=== PATIENT | female | born 1975 | race Two or more races ===

== ENCOUNTER 2021-07-26 07:40 | Outpatient (REF) | payer OTHER, SELFPAY ==
--- NOTE | ~2021-07-26 | XR_ITS ---
EXAMINATION: XR KNEES AP STANDING, BILATERAL XR KNEE, 2 VIEWS, LEFT CLINICAL INFORMATION: Bilateral knee pain. COMPARISON: None. TECHNIQUE: Standing AP view of both knees and lateral and sunrise views of the left knee. FINDINGS: RIGHT KNEE: Mild medial compartment joint space narrowing. No marginal osteophytes. No osseous erosion. No abnormal soft tissue calcification. No fracture or dislocation. LEFT KNEE: Mild medial compartment joint space narrowing. No significant marginal osteophytes. No osseous erosion. No fracture or dislocation. No abnormal soft tissue calcification. No significant joint effusion. XR/XR knee standing BI IMPRESSION: RIGHT KNEE: Minimal medial compartment arthrosis. LEFT KNEE: Minimal medial compartment arthrosis.
--- NOTE | ~2021-07-26 | XR_ITS ---
EXAMINATION: XR KNEES AP STANDING, BILATERAL XR KNEE, 2 VIEWS, LEFT CLINICAL INFORMATION: Bilateral knee pain. COMPARISON: None. TECHNIQUE: Standing AP view of both knees and lateral and sunrise views of the left knee. FINDINGS: RIGHT KNEE: Mild medial compartment joint space narrowing. No marginal osteophytes. No osseous erosion. No abnormal soft tissue calcification. No fracture or dislocation. LEFT KNEE: Mild medial compartment joint space narrowing. No significant marginal osteophytes. No osseous erosion. No fracture or dislocation. No abnormal soft tissue calcification. No significant joint effusion. XR/XR knee LT 2V IMPRESSION: RIGHT KNEE: Minimal medial compartment arthrosis. LEFT KNEE: Minimal medial compartment arthrosis.
== END 2021-07-26 07:41 | disposition home or self-care (01) ==
LOC: HO.HOSX 07:40
PROVIDERS: Visit Provider Physician Assistant
DX: M17.12 Unilateral primary osteoarthritis, left knee (principal); M25.561 Pain in right knee; M23.90 Unspecified internal derangement of unspecified knee
CPT/HCPCS: 73560; 73565; 99202

== ENCOUNTER → 2022-11-07 14:58 | Outpatient (BNVA) | payer OTHER, SELFPAY | PROVIDERS: Visit Provider Physician Assistant | DX: M77.12 Lateral epicondylitis, left elbow (principal) | CPT/HCPCS: 20551; 99212; J1100 ==

== ENCOUNTER 2022-11-19 09:18 | Outpatient (REF) | payer OTHER, SELFPAY | END 2022-11-19 09:19 | disposition home or self-care (01) | LOC: HO.NEURO 09:18 | PROVIDERS: Visit Provider Physician Assistant | DX: R20.0 Anesthesia of skin (principal); R20.2 Paresthesia of skin | CPT/HCPCS: 95885; 95910 ==

== ENCOUNTER 2022-11-25 13:23 | Outpatient (AMB) | payer OTHER, SELFPAY ==
[2022-11-25 13:36] VITALS: BMI 26.5
--- NOTE | 2022-11-25 13:36 | MHC.OFFVIS ---
Intake Vital Signs 11/25/22 13:36 Height 5 ft 6 in Weight 164 lb BMI 26.5 Intake Visit Reasons: OV-Anesthesia & Paresthesia of skin-EMG review Intake Note: Stephani 46 yr old female presents today S/P left elbow injection from 11/07/22 with William Meadows. States injection did not help at all and might have made her pain worse. Patient is now experiencing jittering in her fingers. Patient returns today for her EMG review. Allergies adhesive tape Allergy (Mild, Verified 11/25/22 13:39) Itching HPI OV-Anesthesia & Paresthesia of skin-EMG review HPI Details Stephani is a 46 year old left hand dominant woman woman who presents for a NCS review of her left hand numbness. She was last seen by JUAN Mae for left medial epicondylitis and received an injection on 11/07/22. She feels this injection did not help her, and may have made her pain worse. She complains now of a jittering feeling in her fingers Her primary complaint today is of pain in her forearm, with some mild weakness in her arm. She says her pain is bad enough that she has difficulty sleeping at night. She also has some stiffness in her left hand, worse after some prolonged activity. 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 Review of Systems Const All systems reviewed & are unremarkable except as noted in HPI and below Physical Exam Vital Signs: BMI result Body Mass Index 26.5 Const General: cooperative, healthy appearing and no acute distress Orientation/consciousness: patient oriented x3 HEENT Head: Yes normocephalic and Yes atraumatic Eyes EOM: EOMs intact bilaterally Resp Effort & Inspection: normal respiratory effort and able to speak in complete sentences Cardio Jugular venous distension: no JVD Skin General skin exam: turgor normal Rashes: no rashes Neuro General: patient oriented x3 Extrem Other: Evaluation of Left Upper Extremity: The patient is alert, oriented, and in no acute distress Neuro: Median, Ulnar, Radial nerves motor and sensory intact and sensation is normal to the tips of all digits No thenar or intrinsic wasting Good APB muscle belly firing and good finger cross Vascular: Cap refill brisk ROM: She can make a tight fist with good strength and no pain, and extend all her digits Smooth and symmetrical wrist ROM, including pronosupination Mild tenderness over the flexor origin just over the medial epicondyle Negative Tinel's sign over the ulnar nerve at the cubital tunnel Skin: No lacerations or abrasions. General: No Ecchymosis. No Erythema or evidence of infection. Nerve Conduction study: Normal study with no evidence of carpal tunnel or cubital tunnel syndrome Dr. Todd 11/19/22 Psych Appearance: grossly normal Affect: normal affect Attitude: cooperative Assessment & Plan Assessment & Plan (1) Medial epicondylitis of left elbow: Code(s): M77.02 - Medial epicondylitis, left elbow Plan Assessment & Plan: 1. Left hand numbness and weakness Intermittent and occasional No clinical evidence of carpal tunnel or cubital tunnel syndrome. EMG nerve conduction study within normal limits. 2. Left medial epicondylitis S/P injection on 11/07/22 by JUAN Mae I educated her about this condition I discussed treatment options I recommend OT hand therapy and activity modification Does sound like doing curl type exercises at the gym is likely not helpful. I ordered OT hand therapy, referring her to a location in [facility] as this is closer to her residence She should limit or avoid any activities which cause her pain I explained it can take a long while for her pain to improve from medial epicondylitis She can follow up with Tu in 6-8 weeks. Hopefully OT and activity modification will bring her some relief. Scribed for Pratima Gamino MD by Iam Beavers, medical screener, on 11/25/22 at 2:05 PM, EST. Orders: Orders OT Evaluation and Treatment Today M77.02 - Medial epicondylitis, left elbow Coding Level of Care Code Est Pt Level 3 (95430) Diagnoses Medial epicondylitis of left elbow M77.02
== END 2022-11-25 14:24 | disposition home or self-care (01) ==
PROVIDERS: Visit Provider Orthopaedic Surgery
DX: M77.02 Medial epicondylitis, left elbow (principal)
CPT/HCPCS: 99213

== ENCOUNTER → 2022-11-25 13:23 | Outpatient (BNVA) | payer OTHER, SELFPAY | PROVIDERS: Visit Provider Orthopaedic Surgery | DX: M77.02 Medial epicondylitis, left elbow (principal) | CPT/HCPCS: 99212 ==

== ENCOUNTER 2023-01-12 09:07 | Outpatient (REF) | payer OTHER, SELFPAY ==
--- NOTE | ~2023-01-12 | XR_ITS ---
EXAMINATION: XR ELBOW, LEFT CLINICAL INFORMATION: Pain in left elbow COMPARISON: None available. TECHNIQUE: AP, lateral, and oblique views of the left elbow. FINDINGS: Alignment preserved. Bone mineralization is normal. Multiple small irregular calcifications in the soft tissues adjacent to the medial epicondyle suggestive of medial epicondylitis. XR/XR elbow LT min 3V IMPRESSION: Multiple small irregular calcifications in the soft tissues adjacent to the medial epicondyle suggestive of medial epicondylitis. Recommend follow-up imaging in 10-14 days if fracture is suspected.
== END 2023-01-12 09:08 | disposition home or self-care (01) ==
LOC: HO.HOSX 09:07
PROVIDERS: Visit Provider Physician Assistant
DX: M25.522 Pain in left elbow (principal)
CPT/HCPCS: 73080; 99212

== ENCOUNTER 2023-01-12 09:07 | Outpatient (AMB) | payer OTHER, SELFPAY ==
--- NOTE | 2023-01-12 09:11 | MHC.OFFVIS ---
Intake Vital Signs 01/12/23 09:22 Height 5 ft 6 in Weight 164 lb BMI 26.5 Intake Visit Reasons: OV-Anesthesia & Paresthesia of skin-F/U Intake Note: Stephani 46 year old left hand dominant female who presents today for a follow up of left elbow s/p OT. Patient reports OT is not helping, continues to have pain daily. She states at OT heat does not help and icing helps until the ice comes off. States xrays done at [place] which showed calcium deposit. Allergies adhesive tape Allergy (Mild, Verified 01/12/23 09:22) Itching HPI OV-Anesthesia & Paresthesia of skin-F/U HPI Details 47-year-old left hand dominant female who returns to the office today for a follow-up of left elbow pain. She was seen by Dr. Gamino in November who prescribed her occupational therapy which did not provide her any relief. She was also seen by her PCP at [place] where x-rays were performed. She continues to have pain and mild numbness and tingling in her left elbow which is aggravated hyperextension, heat treatment and at night. She finds transient relief with icing. She had an injection in the past which provided her relief for about a week. She finds no relief with bracing. 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 No erythema or swelling. ROM full without pain. Tenderness over the medial epicondyle and pain with resisted wrist flexion and extension. NVI. Assessment & Plan Assessment & Plan (1) Medial epicondylitis of left elbow: Code(s): M77.02 - Medial epicondylitis, left elbow Plan Dr. Ro was available to see the patient with me today. We discussed treatment options again which include modification of activities, physical therapy and steroid injections. Given the amount of discomfort she is experiencing along with her nerve symptoms, it did raise the question of surgical intervention which would consist of a debridement along the epicondyle and opening the area along the nerve. I will reach out to Dr. Gamino once again to discuss this further to see if this is a patient who would benefit from this type of procedure. Once this has been discussed we will reach out to the patient for further scheduling. Orders: Orders XR elbow LT min 3V Today M25.522 - Pain in left elbow Patient Instructions: Scribed for Tu Meadows PA-C, by Benitez Borja medical professionals, on 01/12/2023 at 9:00 AM EST. May, Tu Meadows PA-C, have personally reviewed and agree with the information entered by the scribe. Coding Level of Care Code Est Pt Level 3 (96127) Diagnoses Medial epicondylitis of left elbow M77.02
[2023-01-12 09:22] VITALS: BMI 26.5
== END 2023-01-12 10:23 | disposition home or self-care (01) ==
PROVIDERS: Visit Provider Physician Assistant
DX: M77.02 Medial epicondylitis, left elbow (principal)
CPT/HCPCS: 99213

== ENCOUNTER 2023-03-03 09:57 | Outpatient (AMB) | payer OTHER, SELFPAY ==
--- NOTE | 2023-03-03 10:30 | A.OFFVIS_ITS ---
Intake Vital Signs 03/03/23 10:31 Height 5 ft 6 in Weight 175 lb BMI 28.2 Intake Visit Reasons: Newprob-LT elbow-discuss surgery Intake Note: Stephani 47 year old female who is left hand dominant, presents today for her left elbow medial epicondylitis as per William Lopez who saw patient on 01/12/23. Patient here to discuss this further treatment options vs surgical intervention. Allergies adhesive tape Allergy (Mild, Verified 01/12/23 09:22) Itching HPI Newprob-LT elbow-discuss surgery HPI Details Stephani is a 47 year old left hand dominant [facility]. She was last seen by JUAN Lopez on 01/12/23, and received an injection on 11/07/22. This was her third injection since 06/2021 for pain, as her symptoms have been present for ~2 years now and originally treated by her explosive ordnance specialist.. She says her most recent injection was helpful for ~1 week, and both bracing & PT were not helpful. She says following her most recent injection her pain worsened. She said she did her physical therapy exercises for perhaps 4 weeks before discontinuing because she did not think they were helpful. She continues to have pain and mild numbness and tingling in her left elbow which is aggravated hyperextension, heat treatment and at night. She says her pain is bad enough that she has difficulty sleeping at night as her arm wakes her up. 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 Physical Exam Vital Signs: BMI result Body Mass Index 28.2 Extrem Other: Evaluation of Left Upper Extremity: The patient is alert, oriented, and in no acute distress Neuro: Median, Ulnar, Radial nerves motor and sensory intact and sensation is normal to the tips of all digits No thenar or intrinsic wasting Good APB muscle belly firing and good finger cross Vascular: Cap refill brisk ROM: She can make a tight fist with good strength and no pain, and extend all her digits Smooth and symmetrical wrist ROM, including pronosupination Tender over the flexor origin just over the medial epicondyle Pain with resisted forearm pronation No pain with resisted finger flexion Radiographs: 3 views of the left elbow from 01/12/23 were reviewed by me today in clinic. They show no fractures or dislocations. There are some calcifications seen along the medial epicondyle Nerve Conduction study: Normal study with no evidence of carpal tunnel or cubital tunnel syndrome Dr. Todd 11/19/22 Assessment & Plan Assessment & Plan (1) Medial epicondylitis of left elbow: Code(s): M77.02 - Medial epicondylitis, left elbow Plan Assessment & Plan: 1. Left medial epicondylitis S/P injection on 11/07/22 by JUAN Lopez Patient reports previous injections in 06/2022 & 2021 by her Shift Superintendent Caustic Cresylate I educated her about this condition I discussed operative and non-operative treatment options I discussed the fact that between 88 96% of patients who are treated with conservative measures such as OT hand therapy, stretching, bracing and steroid injections improve, though it may take 6-12 months or more for improvement. She has had only temporary relief from injections, and no improvement with bracing a 4 week trial of physical therapy exercises. She reports feeling worse pain since her last injection I recommend OT and activity modification I ordered a repeat course of OT hand therapy to work on stretching and modalities, and discussed the importance of performing her stretching exercises daily. As she lives in [place] she is only available to attend OT at [address] weekly, and she says closer locations to her residence do not have OT, only PT I explained it can take a long while for her pain to improve from medial epicondylitis She will follow up in 2 months to see if her symptoms have improved If they have not we may reconsider possible operative intervention at her next appointment This should be a 30 minute appointment with me 2. Left hand numbness and weakness Intermittent and occasional with activity No clinical evidence of carpal tunnel or cubital tunnel syndrome. EMG nerve conduction study within normal limits. Please note that greater than 30 minutes was spent with this patient going over the history, evaluating the patient and radiographs, formulating possible treatment options, discussing them with the patient, and documenting the visit. Scribed for Pratima Gamino MD by Iam Beavers, medical transcription, on 03/03/23 at 10:55 AM, EST. Orders: Orders OT Evaluation and Treatment Today M77.02 - Medial epicondylitis, left elbow Coding Level of Care Code Est Pt Level 4 (48252) Diagnoses Medial epicondylitis of left elbow M77.02
[2023-03-03 10:31] VITALS: BMI 28.2
== END 2023-03-03 11:08 | disposition home or self-care (01) ==
LOC: HO.HOS 09:57
PROVIDERS: Visit Provider Orthopaedic Surgery
DX: M77.02 Medial epicondylitis, left elbow (principal)
CPT/HCPCS: 99214

== ENCOUNTER → 2023-03-03 09:57 | Outpatient (BNVA) | payer OTHER, SELFPAY | PROVIDERS: Visit Provider Orthopaedic Surgery | DX: M77.02 Medial epicondylitis, left elbow (principal) | CPT/HCPCS: 99212 ==

== ENCOUNTER 2023-03-26 12:55 | Outpatient (RCR) | payer OTHER, SELFPAY ==
--- NOTE | 2023-04-15 08:55 | MHC.OT.DC ---
[address] [phone] F: [phone] Occupational Therapy Discharge Note Patient Name: Stephani Goins Provider: Dr Pratima Gamino Diagnosis: Medial Epicondylitis L elbow Date of Evaluation: 03/26/23 Date of Discharge: 04/15/23 Treatments to Date: 1 Cancellations to Date: 0 No Shows to Date: 4 Discharge Status: Visit Non-compliance Discharge Summary: Stephani was initially seen for an evaluation on 03/26/23 for medial epicondylitis on L elbow. At that time was educated on basic joint protection, stretches and disease etiology. She has since missed 4 scheduled appointments and she is now being discharged for visit non compliance. Electronically Signed By: Dominique Maya OT/s Reviewed/agree with student documentation: Yes Therapist: Jojo Figueroa OTR/L Please Sign and return to therapist, thank you for your referral.
== END 2023-04-15 08:57 | disposition home or self-care (01) ==
LOC: HO.OT 12:55
PROVIDERS: PCP Family Medicine; Visit Provider Orthopaedic Surgery
DX: M77.02 Medial epicondylitis, left elbow (principal)
CPT/HCPCS: 97035; 97110; 97140; 97165

== ENCOUNTER 2023-11-11 08:20 | Outpatient (AMB) | payer OTHER, SELFPAY ==
--- NOTE | 2023-11-11 08:23 | A.OFFVIS_ITS ---
Vital Signs 11/11/23 08:26 Height 5 ft 6 in Weight 185 lb 3.013 oz BMI 29.9 BP 124/87 Blood Pressure Location Lt brachial Position Sitting Pulse 84 Intake Visit Reasons: GERD and colonoscopy screening Intake Note: Stephani presents in the office as a new patient for GERD and a Colonoscopy screening. CC: She feels like her acis reflux has gotten worse. Pepcid seems to help - she states she gets the acid that comes up and goes back down almost like vomit. Dog Licenser Required: No Allergies adhesive tape Allergy (Mild, Verified 11/11/23 08:26) Itching HPI HPI GERD and colonoscopy screening: Details: 47-YEAR-OLD FEMALE here for a preprocedural meeting to discuss a screening colonoscopy and also wants to be evaluated for GERD. She is referred by [facility]. P.m. X Asthma Thyroid goiter /subclinical hyperthyroidism Generalized osteoarthritis Anxiety Migraines Nephrolithiasis Genital herpes GERD * SURGICAL HISTORY section x3 Uterine polyp removal * ALLERGIES Adhesive tape * [employer]: none in our system TODAY'S VISIT Her GERD has worsened recently. She had a barium swallow a couple of years ago that showed really bad GERD with liquids refluxing back up. She will frequently eat and have vomit come back up. 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 She feels always full, and the famotidine helps settle my stomach. She has frequent diarrhea, and she uses a lot of Imodium - but this will back her up for 3 days and then she has a lot of bloating and then will have an explosive diarrhea response. Her mother and grandmother both have dairy problems and frequent diarrhea as well. Her sister has really bad GERD as well. She is likely lactose intolerant and avoids this on trips and uses almond milk. Her asthma is well controlled and she denies cardiac problems. There are no prior problems with anesthesia or sedation. There are no infectious disease problems. We will try her on some sucralfate and return office visit in 6 weeks. 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 Review of Systems Const Denies fatigue, Denies fever(s), Denies night sweats, Denies poor appetite and Denies weight loss ENT Reports Normal hearing present, Denies dental pain, Denies dysphagia, Denies hearing loss, Denies mouth pain, Denies odynophagia, Denies throat swelling, Denies tongue swelling and Reports other (Dentition adequate) Card Reports no additional complaints Resp Reports no additional complaints GI Details: Reports abdominal pain, Denies melena, Reports bloating, Denies hematochezia, Denies constipation, Denies GI cramping, Denies dysphagia, Denies excessive flatus, Denies early satiety, Reports heartburn, Reports diarrhea, Reports nausea, Denies odynophagia, Denies vomiting and Denies hematemesis Skin/Breast Denies pruritus, Denies lesions, Denies rash and Denies jaundice Neuro Reports Normal hearing present and Denies Abnormal speech present Endo Denies fatigue Aller/Immun Denies throat swelling and Denies tongue swelling Physical Exam Vital Signs: Last Vital Signs Pulse 84 11/11/23 08:26 BP 124/87 11/11/23 08:26 BMI result Body Mass Index 29.9 Const General: cooperative, no acute distress, well developed and well groomed Nutritional Appearance: well nourished and overweight Orientation/consciousness: oriented to person, oriented to place and oriented to time Limitations: No language barrier HEENT Head: Yes normocephalic and Yes atraumatic Eyes General: appearance normal, both eyes and all related structures Pupils: Equal, round and reactive pupils present Neck Neck: Yes normal visual inspection and Yes no lymphadenopathy Thyroid: Thyroid normal Resp Effort & Inspection: normal respiratory effort and able to speak in complete sentences Auscultation: clear to auscultation bilaterally Cardio Rate: regular rate Rhythm: regular rhythm Heart sounds: Normal, physiologic split S2 sound present Peripheral pulses: radial pulses present and posterior tibial pulses present GI Inspection: No distended, No Abdominal panniculus present and Yes obesity Palpation (GI): Soft to palpation, nontender, no guarding, not rigid and No hepatosplenomegaly present Percussion: Yes normal to percussion Auscultation: normal bowel sounds Rectal Exam - Female: deferred Skin General skin exam: no rashes or lesions noted, turgor normal, skin not dry, no jaundice, No spider nevi and no striae Rashes: no rashes Nails: normal Neuro General: oriented to person, oriented to place and oriented to time Cranial nerves: Yes Equal, round and reactive pupils present and Yes Normal hearing present Speech: No Abnormal speech present Extrem General: Yes normal to inspection, No clubbing, No cyanosis and No edema Psych Appearance: grossly normal and well kempt Mental Status: mental status grossly normal Speech and movement: Normal speech and movement present Affect: normal affect Attitude: cooperative Thought process: Normal thought process present and not confabulating Thought content: Normal thought content present Insight: Limited insight present (Psych) Judgement: Limited judgement present (Psych) Assessment & Plan Assessment & Plan (1) Pre-op examination: Code(s): Z01.818 - Encounter for other preprocedural examination Category: Medical (2) GERD (gastroesophageal reflux disease): Code(s): K21.9 - Gastro-esophageal reflux disease without esophagitis Category: Medical (3) Diarrhea: Code(s): R19.7 - Diarrhea, unspecified Category: Medical (4) Early satiety: Code(s): R68.81 - Early satiety Category: Medical Plan Ask her about family history of colon cancer and polyps next visit Her GERD has worsened recently. She had a barium swallow a couple of years ago that showed really bad GERD with liquids refluxing back up. She will frequently eat and have vomit come back up. 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 She feels always full, and the famotidine helps settle my stomach. She has frequent diarrhea, and she uses a lot of Imodium - but this will back her up for 3 days and then she has a lot of bloating and then will have an explosive diarrhea response. Her mother and grandmother both have dairy problems and frequent diarrhea as well. Her sister has really bad GERD as well. She is likely lactose intolerant and avoids this on trips and uses almond milk. Her asthma is well controlled and she denies cardiac problems. There are no prior problems with anesthesia or sedation. There are no infectious disease problems. We will try her on some sucralfate and return office visit in 6 weeks. Orders: Orders EGD/[place] Combo - GI Use Only 11/11/23 Z01.818 - Encounter for other preprocedural examination Rast Allergen 11/11/23 R19.7 - Diarrhea, unspecified, R68.81 - Early satiety Transglutaminase Ab IgG 11/11/23 R19.7 - Diarrhea, unspecified, R68.81 - Early satiety Comprehensive Met. Panel 11/11/23 Z01.818 - Encounter for other preprocedural examination Complete Blood Count Auto Diff 11/11/23 Z.818 - Encounter for other preprocedural examination Transglutaminase IgA 11/11/23 R19.7 - Diarrhea, unspecified, R68.81 - Early satiety Medications: New sodium,potassium,mag sulfates 17.5-3.13-1.6 gram (Suprep Bowel Prep Kit) 480 mL orally; FOR COLONOSCOPY PREP 354 mL 0RF sucralfate (Carafate) 2 grams (2 x 1 gram) PO .qacsupper 60 tabs 3RF R19.7 - Diarrhea, unspecified, K21.9 - Gastro-esophageal reflux disease without esophagitis Coding Level of Care Code New Pt Level 3 (67761) Diagnoses Pre-op examination Z.818 GERD (gastroesophageal reflux disease) K21.9 Diarrhea R19.7 Early satiety R68.81
[2023-11-11 08:26] VITALS: BP 124/87; PULSE 84; BMI 29.9
== END 2023-11-11 09:15 | disposition home or self-care (01) ==
LOC: HO.HGI 08:20
PROVIDERS: PCP Family Medicine; Visit Provider Nurse Practitioner
DX: Z01.818 Encounter for other preprocedural examination (principal); K21.9 Gastro-esophageal reflux disease without esophagitis; R19.7 Diarrhea, unspecified; R68.81 Early satiety
CPT/HCPCS: 99203

== ENCOUNTER 2023-11-11 08:20 | Outpatient (REF) | payer OTHER, SELFPAY ==
[2023-11-11 09:35] LABS: MANUAL DIFF FLAG NO
[2023-11-11 09:57] LABS: Basophils Absolute Auto 0.1 X10*3/uL (0.0-0.2); Basophils Percent Auto 0.6 % (0-2); Eosinophils Absolute Auto 0.1 X10*3/uL (0.0-0.4); Eosinophils Percent Auto 1.7 % (0-4); Hematocrit 42.7 % (37.0-47.0); Hemoglobin 14.4 g/dl (12.0-16.0); Imm Gran Abs Auto 0.01 X10*3/uL (0.00-0.03); Imm Gran Pct Auto 0.1 % (0.0-0.4); Lymphocytes Absolute Auto 2.9 X10*3/uL (1.2-4.9); Lymphocytes Percent Auto 38.1 % (20-40); Mean Corpuscular HGB Conc 33.7 g/dl (31.0-35.0); Mean Corpuscular Hemoglobin 29.5 pg (27.0-33.0); Mean Corpuscular Volume 87.5 fL (80.0-98.0); Mean Platelet Volume 9.3 fL (9.4-12.3); Monocytes Absolute Auto 0.6 X10*3/uL (0.1-1.2); Monocytes Percent Auto 8.2 % (2-11); Neutrophils Percent Auto 51.3 % (45-73); Platelet Count 353 X10*3/uL (160-400); Red Blood Count 4.88 X10*6/uL (4.20-5.50); Red Cell Distribution Width 11.9 % (11.0-16.0); White Blood Count 7.7 X10*3/uL (4.8-10.8)
[2023-11-11 10:19] LABS: Alanine Aminotransferase 16 U/L (0-31); Albumin Level 4.3 g/dL (3.5-5.0); Alkaline Phosphatase 110 U/L (39-117); Anion Gap 13 (12-20); Aspartate Amino Transferase 18 U/L (5-31); Bilirubin Total 0.5 mg/dL (0.0-1.0); Blood Urea Nitrogen 13 mg/dL (9-16); Calcium 10.2 mg/dL (8.4-10.2); Carbon Dioxide 27 mmol/L (22-29); Chloride 107 mmol/L (96-108); Estimated Glomerular Filt Rate 53; Glucose Random 90 mg/dL (60-115); Sodium 143 mmol/L (135-145); Total Protein 7.8 g/dL (6.5-8.0)
[2023-11-13 22:08] LABS: Transglutaminase Ab IgG <1.0 U/mL; Transglutaminase IgA <1.0 U/mL
== END 2023-11-11 08:21 | disposition home or self-care (01) ==
LOC: HO.LAB 08:20
PROVIDERS: PCP Family Medicine; Visit Provider Nurse Practitioner
DX: Z01.818 Encounter for other preprocedural examination (principal); R19.7 Diarrhea, unspecified; R68.81 Early satiety; K21.9 Gastro-esophageal reflux disease without esophagitis
CPT/HCPCS: 36415; 80053; 85025; 86003; 86364; 99202

== ENCOUNTER 2024-05-03 10:07 | Outpatient (AMB) | payer OTHER, SELFPAY ==
[2024-05-03 10:10] VITALS: BMI 29.9
--- NOTE | 2024-05-03 10:10 | A.OFFVIS_ITS ---
Vital Signs 05/03/24 10:10 Height 5 ft 6 in Weight 185 lb BMI 29.9 Intake Visit Reasons: OV- Medial epicondylitis of left elbow Intake Note: Stephani 47 year old female, left hand dominant, presents today for her left elbow medial epicondylitis follow up visit s/p O.T. States she continues to have pain and swelling. She was seen in urgent care on 04/15/24 due to feeling pressure in arm/elbow and was told she has calcium deposit. She is still limited ROM and has started O.T about 1 week ago. Allergies adhesive tape Allergy (Mild, Verified 05/03/24 10:22) Itching HPI HPI OV- Medial epicondylitis of left elbow: Details: Stephani is a 48 year old left hand dominant woman who returns to discuss her left medial epicondylitis. She was last seen on 03/03/23, and received an injection on by JUAN Mae on 11/07/22. This was her third injection since 06/2021 for pain, as her symptoms have been present for ~3 years now and originally treated by her recruit instructor. At her last appointment she was sent for OT hand therapy, she attended one appointment and no-showed the remaining ones and was D/C following their no-show policy. She continues to have pain and swelling in her left elbow, which has been present for several years now. She says she was seen in the ED on 04/15/24 due to elbow pain & pressure and told she had a calcium deposit there. She says her pain is bad enough that she has difficulty sleeping at night as her arm wakes her up. She says she started OT hand therapy again ~1 week ago, this is not through [place]. She continues to complain of occasional tingling in her fingers, intermittent and primarily when moving/holding her elbow in specific positions. She says this has gotten worse since she was seen in the ED on 04/15/24. 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 Review of Systems Const All systems reviewed & are unremarkable except as noted in HPI and below Physical Exam Vital Signs: BMI result Body Mass Index 29.9 Const General: no acute distress and alert Orientation/consciousness: patient oriented x3 Neuro General: patient oriented x3 Extrem Other: Evaluation of Left Upper Extremity: The patient is alert, oriented, and in no acute distress When asked her to show me where her pain is she placed her hand over the anterior aspect of her left shoulder, then demonstrated that she feels pressure over the antecubital area extending over the volar aspect of the forearm. Neuro: Median, Ulnar, Radial nerves motor and sensory intact and sensation is normal to the tips of all digits No thenar or intrinsic wasting Good APB muscle belly firing and good finger cross Vascular: Cap refill brisk ROM: She can make a tight fist with good strength and no pain, and extend all her digits Smooth and symmetrical wrist ROM, including pronosupination Nontender over the medial epicondyle the 1st time I palpated it. Mild tenderness over the medial epicondyle the 2nd time I palpated it No swelling, full elbow range of motion Pain with resisted forearm pronation No pain with resisted finger or wrist flexion Radiographs: 3 views of the left elbow from 01/12/23 were reviewed by me today in clinic. They show no fractures or dislocations. There are some calcifications seen along the medial epicondyle Nerve Conduction study: Normal study with no evidence of carpal tunnel or cubital tunnel syndrome Dr. Todd 11/19/22 Psych Appearance: grossly normal Affect: normal affect Attitude: cooperative Assessment & Plan Assessment & Plan (1) Left arm pain: Code(s): M79.602 - Pain in left arm Category: Medical (2) Medial epicondylitis of left elbow: Code(s): M77.02 - Medial epicondylitis, left elbow Category: Medical Plan Assessment & Plan: 1. Generalized left arm pain & pressure Since ~04/15/24, etiology unclear Pain in the left shoulder, as well as the antecubital fossa across the volar surface of the forearm 2. Left medial epicondylitis S/P injection on 11/07/22 by JUAN Mae Patient reports previous injections in 06/2022 & 2021 by her Chief Design Engineer No/inconsistent tenderness over the medial epicondyle today in clinic This appears to have mostly resolved and is no longer her primary complaint I educated her about this condition I recommend OT/PT and activity modification to work on stretching and modalities, and I discussed the importance of performing her stretching exercises daily. She says she recently resumed attending physical therapy last week. I explained it can take a long while for her pain to improve from medial epicondylitis She will follow up prn 3. History of Left hand numbness and weakness In all digits Intermittent and occasional with activity No clinical evidence of carpal tunnel or cubital tunnel syndrome. EMG nerve conduction study within normal limits. Scribed for Pratima Gamino MD by Iam Beavers, durable medical equipment repairer, on 05/03/24 at 10:35 AM, EST. Coding Level of Care Code Est Pt Level 3 (36162) Diagnoses Left arm pain M79.602 Medial epicondylitis of left elbow M77.02
== END 2024-05-03 10:44 | disposition home or self-care (01) ==
PROVIDERS: PCP Family Medicine; Visit Provider Orthopaedic Surgery
DX: M79.602 Pain in left arm (principal); M77.02 Medial epicondylitis, left elbow
CPT/HCPCS: 99213

== ENCOUNTER → 2024-05-03 10:07 | Outpatient (BNVA) | payer OTHER, SELFPAY | PROVIDERS: PCP Family Medicine; Visit Provider Orthopaedic Surgery | DX: M77.02 Medial epicondylitis, left elbow (principal); M79.602 Pain in left arm | CPT/HCPCS: 99212 ==

== ENCOUNTER 2024-07-12 13:13 | Outpatient (AMB) | payer OTHER, SELFPAY ==
--- NOTE | 2024-07-12 13:16 | MHC.OFFVIS ---
Vital Signs 07/12/24 13:17 Height 5 ft 6 in Weight 195 lb 5.273 oz BMI 31.5 BP 124/86 Blood Pressure Location Lt brachial Position Sitting Pulse 91 Pulse Source Pulse Oximeter Pulse Oximetry (%) 96 Oxygen Delivery Method Room Air Intake Visit Reasons: Hyperthyroidism Intake Note: Patient present today for Hyperthyroidism office visit. University Professor Required: No Allergies adhesive tape Allergy (Mild, Verified 07/12/24 13:26) Itching Medication List - Last Reconciled 07/12/24 by Rosalina Dupont MD cholecalciferol (vitamin D3) 50 mcg PO DAILY famotidine 20 mg PO BID ferrous sulfate 325 mg PO DAILY ibuprofen 600 mg PO Q8H PRN lorazepam (Ativan) 0.5 mg PO DAILY PRN methimazole 5 mg PO DAILY ondansetron mg PO riboflavin (vitamin B2) 400 mg PO DAILY sodium,potassium,mag sulfates 17.5-3.13-1.6 gram (Suprep Bowel Prep Kit) 480 mL orally; FOR COLONOSCOPY PREP sucralfate (Carafate) 2 grams (2 x 1 gram) PO .qacsupper HPI Comments Details: 48-year-old female coming in today for initial evaluation of hyperthyroidism and hyperparathyroidism. Patient was previously following with [facility] endocrinology, however due to insurance coverage changes has to change her endocrinology care. Last seen 1 year ago. Hyperthyroidism 2011 during hyperemesis, found to have thyroid dysfunction then resolved Then 2012 : palpitation , anxiety, got evaluated got diagnosed with hyperthyroidism Was started on methimazole and then lost to follow up Then reestablished care with PCP 1 year ago and restarted methimazole. currently on metimazole 5 mg daily. skipped it for a few weeks late 2023/early may 2024 but now back on it for the past 2 weeks. Palpitation improved. Anxiety still present. Still tired , not improved. Diarrhea she is on imodium. Experiencing hot flashes, last period was 1 year ago. Gained 10 lbs since summer 2024. Patient currently denies changes in appearance of eyes or vision changes, tremors, increased diaphoresis or dry skin. ? Some intermittent dysphagia. Patient denies any pain on swallowing or voice changes or difficulty breathing. Patient denies any history of childhood neck radiation. Denies having ever used lithium, amiodarone or biotin supplements. Patient denies any family history of thyroid cancer. 2 cousins , one had hemithyroidectomy unclear reason, the other one had Graves disease and had thyroidectomy, paternal cousins. Labs 06/16/2024 TSH 0.97 Hyperparathyroidism Patient tells me she was also diagnosed with primary hyperparathyroidism back when she was following with [facility] endocrinology about a year ago. I do not have records of this, however labs from October 2023 showed normal calcium levels. No kidney stones No fractures sister had kidney stones and hyper parathyroidism On vitamin D 1000 units daily No calcium supplemnets [place] milk here and there, yogurt once a week. Physical exam General: sitting comfortably in no acute distress HEENT: normocephalic/atraumatic, Neck: supple, symmetrical, no thyromegaly , Cardiac: normal heart sounds Pulm: normal breath sounds B/L, no added breath sounds Abd: not distended, no tenderness Extremities: no edema, no signs of myxedema Laboratory Tests 11/11/23 09:35 Calcium 10.2 Albumin 4.3 PFSH Medical History (Updated 07/12/24 @ 14:01 by Rosalina Dupont MD) Hyperthyroidism Hyperparathyroidism Surgical History Hx of myomectomy History of section Social History Patient Tobacco Use Status: Never used Tobacco Current occupational status: employed 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 Previously she was following with [facility] endocrinology, I will obtain her records. At this time she is on methimazole 5 mg daily, she had blood work on June 16 which showed normal TSH. She describes she was inconsistent with taking the methimazole over the past few weeks however for the past 2 weeks has been taking it consistently. I asked her to repeat labs in another 2 weeks. We will also check for antibodies to see if she has Graves disease. She does not know the etiology of hyperthyroidism. I discussed with the patient that most likely etiology is Graves disease. However given she does not have any concerns for orbitopathy, no goiter on neck exam, could possibly be toxic nodular disease or toxic adenoma. As far as Graves disease is concerned, Discussed with patient that about 30% of the patients have remission after 12-18 months of treatment with methimazole. More recent data has shown longer periods of treatment resulting in better remission rates as well. At this time we will plan to continue treatment with methimazole and continue adjusting the dose as needed. In the long run if she does not have remission, we also briefly discussed definitive therapy options of radioactive iodine ablation and total thyroidectomy and the need for requiring long-term levothyroxine therapy after those procedures. Plan: -obtain records from [facility] endocrinology -Continue taking methimazole 5 mg daily in the morning. - Hold multivitamin intake for three days before doing the specified blood tests. - Complete the thyroid and antibody blood work in two weeks. - Await scheduling call for thyroid ultrasound. - Follow up in four weeks to discuss test results and management plan. (2) Hyperparathyroidism: Code(s): E21.3 - Hyperparathyroidism, unspecified Category: Medical Plan: Patient describes she has a history of hyperparathyroidism, as mentioned in her PCP's note. I do not have any records of this, however labs from October 2023 showed normal calcium levels. I will obtain her records from [facility]. However at this time we will also order labs with 24 hour urine calcium evaluation as well as serum levels. Kidney function was normal from labs from October 2023. She does not have any history of kidney stones, fractures or osteoporosis. She does have a family history of kidney stones and hypercalcemia in sister, we will also have to think if she has possibly FH FH. We are getting a 24 hour urine evaluation, however we will have to keep in mind that she has low intake nutritionally of calcium. For hyperparathyroidism, I explained the need for detailed assessment through upcoming lab results and a 24-hour urine study. I encouraged the patient to increase her dietary calcium intake to incorporate 1000 mg of calcium daily in preparation for testing. We scheduled a follow-up to review all test outcomes and reassess treatment options as necessary. Plan: -ordered 24 hour urine calcium, creatinine, serum calcium, ionized calcium, albumin, PTH, vitamin-D, phosphorus levels , magnesium levels -continue vitamin-D 1000 units daily -incorporate calcium in diet to account for 1000 mg daily starting now so that her urine calcium levels are reflective of a good calcium intake -follow up in 4 weeks to discuss results -obtain records from [facility] endocrinology Plan I spent 60 minutes in reviewing the record, seeing the patient and documenting in the medical record. Orders: Orders Thyroid Stimulating Immunoglob 2 Weeks E05.90 - Thyrotoxicosis, unspecified without thyrotoxic crisis or storm Thyroid Peroxidase Antibodies 2 Weeks E05.90 - Thyrotoxicosis, unspecified without thyrotoxic crisis or storm Vitamin D 25-OH Total 2 Weeks E21.3 - Hyperparathyroidism, unspecified Calcium, Ionized 2 Weeks E21.3 - Hyperparathyroidism, unspecified Calcium, 24 Hr Ur 2 Weeks E21.3 - Hyperparathyroidism, unspecified Creatinine, 24 Hr Group 2 Weeks E21.3 - Hyperparathyroidism, unspecified Basic Metabolic Panel 2 Weeks E21.3 - Hyperparathyroidism, unspecified Magnesium 2 Weeks E21.3 - Hyperparathyroidism, unspecified Thyroid Stimulating Hormone 2 Weeks E05.90 - Thyrotoxicosis, unspecified without thyrotoxic crisis or storm Free T4 (Free Thyroxine) 2 Weeks E05.90 - Thyrotoxicosis, unspecified without thyrotoxic crisis or storm Triiodothyronine T3 Total 2 Weeks E05.90 - Thyrotoxicosis, unspecified without thyrotoxic crisis or storm Thyrotropin Receptor Antibody 2 Weeks E05.90 - Thyrotoxicosis, unspecified without thyrotoxic crisis or storm Albumin Level 2 Weeks E21.3 - Hyperparathyroidism, unspecified Calcium 2 Weeks E21.3 - Hyperparathyroidism, unspecified Phosphorus 2 Weeks E21.3 - Hyperparathyroidism, unspecified Parathyroid Hormone Intact 2 Weeks E21.3 - Hyperparathyroidism, unspecified US thyroid Today E05.90 - Thyrotoxicosis, unspecified without thyrotoxic crisis or storm Medications: New methimazole 5 mg PO DAILY 30 tabs 6RF Patient Instructions: Do 24 hr urine collection and do blood work same day as urine collection 24 hr urine collection instructions You have been asked to collect your urine for 24 hours to assess for calcium excretion. You must choose a 24 hour period of time when you will be home. The morning of the first day, DISCARD the FIRST morning void and then note the time. You will collect every single void from then on for 24 hours. For example, if you wake up at 6am and urinate, flush down that void. You will then collect every drop of urine all day and all night through 6am the following day. You will urinate one last time at 6am for the collection. The jug of urine must be kept in the refrigerator until you bring it to the lab. Continue vitamin D 1000 units daily Incorporate 800 to 1000 mcg of calcium in diet by taking 2-3 servings of calcium rich foods dailu Continue methimzole 5 mg daily Follow up in 4 weeks to discuss results Do thyroid ultrasound someone will call to schedule this Coding Level of Care Code New Pt Level 5 (80652) Diagnoses Hyperthyroidism E05.90 Hyperparathyroidism E21.3 Time Spent (min) 60
[2024-07-12 13:17] VITALS: BP 124/86; PULSE 91; O2SAT 96; BMI 31.5
--- OUTSIDE RECORDS SUMMARY | 2024-07-12 16:10 | XMS_ITS | Continuity of Care Document ---
Author Organization [facility] - [facility], [facility] Address [address] [place] [address] Care Team Providers Care Stave And Bolt Equalizer Name Role Phone ZENA VALENTINO Primary Care Provider Assessment Encounter Date Assessment Date Assessment LastModified by Organization Details LastModified Time 06/30/2024 06/30/2024 48yo female with right TMJ and history of GERD presents for reevaluation of throat clicking sensation. This started 6+ years ago and has been worked up in the past with FOL x3, CT neck 2019, and swallow study in 2019. She reports the sensation is now associated with right sided neck pain. No associated breathing, swallowing, or eating difficulties. Examination is unremarkable except for some clicking when the hyoid slides over the greater cornu of the thyroid cartilage, as appreciated by Dr. Clayton in the past. Patient declined fiberoptic laryngoscopy today. We discussed this is likely a benign age-related phenomenon as her larynx matures. There is no indication to order repeat imaging at this time. Offered to refer her to [facility] for an additional opinion if she would like to travel. [email or web address] Not available 06/30/2024 13:07:19 Plan of Treatment Reminders Order Date Submit Date Provider Last Modified By Organization Details Last Modified Time Details Appointments None record ed. Lab None record ed. Referral None record ed. Procedures None record ed. Surgeries None record ed. Imaging None record ed. Medication Orders None record ed. Patient TargetsNo targets recorded. Patient InstructionsNo instructions recorded. Reason for Referral None Reported. Problems Name Problem SNOMED Code Status Onset Date Resolution Date Notes Provider Name and Address Organization Details Recorded Time Mass of neck 766465534 Active 2018 Localized swelling, mass and lump, neck; Location: right Not e: Date Diagnosed : 12/28/2018 3:00 PM (R22.1) Not Available [facility] 4 02:21:22 Neck swelling 770719698 Active 2018 Localized swelling, mass and lump, neck; Location: right Not e: Date Diagnosed : 12/28/2018 3:00 PM (R22.1) Not Available [facility] 4 02:21:22 Respirato ry finding 463416458 Active 2019 Feeling of foreign body in throat; Note: Date Diagnosed : 09/22/2019 4:32 PM (R09.89) Not Available [facility] 4 02:21:59 Cardiovas cular finding 885584461 Active 2019 Feeling of foreign body in throat; Note: Date Diagnosed : 09/22/2019 4:32 PM (R09.89) Not Available [facility] 4 02:21:59 Laryngeal spasm 576687480 Active 2019 Laryngeal spasm; Note: Date Diagnosed : 02/24/2020 3:00 PM (J38.5) Not Available [facility] 4 02:21:41 Pain of right temporoma ndibular joint 88492081029 039011 Active 2022 Arthralgi a of right temporoma ndibular joint; Note: Date Diagnosed : 04/21/2023 4:10 PM (M26.621) Not Available [facility] 4 02:21:52 Somatofor m disorder 96076524 Active 2018 Psychogen ic dysphagia , including 'globus hystericu s'; Note: Date Diagnosed : 12/28/2018 2:44 PM (F45.8) Not Available [facility] 4 02:21:24 Feeling of lump in throat 274946420 Active 2024 NATALIYA ZAMORA PA-C [address] [place] [address], [place], [address] , [facility] - [facility] 5 13:07:28 Impacted cerumen in right ear 88136518162 56172 Active 2024 NATALIYA ZAMORA PA-C [address] [facility],[place] [address], [place], [address] , [facility] 13:08:59 Problem Notes None recorded. Procedures Surgical History Date Name Laterality Status Provider Name and Address Organization Details Recorded Time Cerumen removal without microscope right completed NATALIYA ZAMORA PA-C [address] [facility],[place] [address], [place], [address], [facility] 06/30/2024 12:58:58 Imaging Results None recorded. Procedure Notes None recorded. Medical Equipment None Reported. Medications Name Sig Start Date Stop Date Status Note LastModified by Organization Details LastModified Time sucralfat e 1 gram tablet TAKE 2 TABLETS ORALLY BEFORE SUPPER active Not Available Not Available No t Available sumatript an 25 mg tablet PLEASE SEE ATTACHED FOR DETAILED DIRECTIO NS active Not Available Not Available No t Available metronida zole 0.75 % (37.5 mg/5 gram) vaginal gel APPLY 1 APPLICAT ORFUL AT BEDTIME VAGINALL Y NIGHTLY 7 DAY(S) (DISCARD REMAINDE R) active Not Available Not Available No t Available ondansetr on HCl 4 mg tablet active Medicati on ID: [id number] B rand Name: ondanset alpesh HCl Send Method: E-Prescr ibed Sub s Allowed: subs OK Medic ationGen ericName : ondanset alpesh HCl Not Available Not Available Not Available famotidin e 40 mg tablet active Medicati on ID: [id number] B rand Name: famotidi ne Send Method: E-Prescr ibed Sub s Allowed: subs OK Medic ationGen ericName : famotidi ne Not Available Not Available Not Available sertralin e 100 mg tablet TAKE 1 TABLET BY MOUTH EVERY DAY IN THE MORNING active Not Available Not Available No t Available metronida zole 500 mg tablet TAKE 1 TABLET BY MOUTH TWICE A DAY FOR 7 DAYS active Not Available Not Available No t Available ondansetr on 8 mg disintegr ating tablet DISSOLVE 1 TABLET ON THE TONGUE BY MOUTH EVERY DAY NEEDED active Not Available Not Available No t Available terbinafi ne HCl 250 mg tablet TAKE 1 TABLET BY MOUTH EVERY DAY active Not Available Not Available No t Available famotidin e 20 mg tablet TAKE 1 TABLET BY MOUTH EVERY DAY active Not Available Not Available No t Available lorazepam 0.5 mg tablet TAKE 1 TABLET BY MOUTH EVERY DAY NEEDED FOR ANXIETY active Not Available Not Available No t Available cyanocoba juan (vit B-12) 500 mcg tablet TAKE 1 TABLET BY MOUTH EVERY DAY FOR 90 DAYS active Not Available Not Available No t Available cephalexi n 500 mg capsule TAKE 1 CAPSULE BY MOUTH EVERY 8 HOURS FOR 7 DAYS active Not Available Not Available No t Available erythromy geoffrey 5 mg/gram (0.5 %) eye ointment APPLY AT BEDTIME INTO BOTH EYES DIRECTED . active Not Available Not Available No t Available ferrous sulfate 325 mg (65 mg iron) tablet TAKE 1 TABLET BY MOUTH ONCE DAILY FOR 30 DAY(S) 90 DAYS 90 DAYS active Not Available Not Available No t Available clotrimaz ole-betam ethasone 1 %-0.05 % topical cream APPLY DAILY TO SKIN TO AFFECTED AREA TWICE A DAY FOR 2 WEEKS active Not Available Not Available No t Available ibuprofen 200 mg tablet 09/10 completed Medicati on ID: [id number] B rand Name: ibuprofe n Send Method: E-Prescr ibed Sub s Allowed: subs OK Medic ationGen ericName : ibuprofe n Not Available Not Available Not Available methimazo le 5 mg tablet TAKE 1 TABLET BY MOUTH EVERY DAY active Not Available Not Available No t Available sertralin e 25 mg tablet TAKE 1 TABLET BY MOUTH EVERY DAY IN THE MORNING active Not Available Not Available No t Available omeprazol e 20 mg capsule,d elayed release 09/10 completed Medicati on ID: [id number] D uration Value: 30 Brand Name: omeprazo le Send Method: E-Prescr ibed Sub s Allowed: subs OK Medic ationGen ericName : omeprazo le Not Available Not Available Not Available ibuprofen 600 mg tablet TAKE 1 TABLET BY MOUTH THREE TIMES A DAY WITH FOOD OR MILK NEEDED active Not Available Not Available No t Available sertralin e 50 mg tablet active Medicati on ID: [id number] B rand Name: sertrali ne Send Method: E-Prescr ibed Sub s Allowed: subs OK Medic ationGen ericName : sertrali ne Not Available Not Available Not Available Vitamin D3 50 mcg (2,000 unit) tablet TAKE 1 TABLET BY MOUTH EVERY DAY FOR 90 DAYS active Not Available Not Available No t Available Vienva 0.1 mg-20 mcg tablet active Medicati on ID: [id number] B rand Name: Vienva S end Method: E-Prescr ibed Sub s Allowed: subs OK Medic ationGen ericName : Vienva Not Available Not Available Not Available Vitals None Recorded Social History None recorded. Functional Status None recorded. Mental Status None recorded. Family History Nothing Reported. Medical History No medical history recorded. Gynecological HistoryNo gynecological history recorded. Obstetrics History GPAL:G 0 P 0 0 0 0 Past Encounters Encounter ID Performer Location Encounter Start Date Encounter Closed Date Diagnosis/Indication Diagnosis SNOMED-CT Code Diagnosis ICD10 Code Diagnosis Note [id number] ISMA ZHANG MD [facility] [address] [address] 06/30/2024 10:18:42 06/30/2024 11:25:41 Pain of right temporomandibular joint [id number] M26.621 Feeling of lump in throat 758690288 R09.89 Impacted c erumen in right ear 9325485238 818337 H61.21 Health Concerns Section Related Observation LastModified by Organization Detai ls LastModified Time None Recorded Concern Status LastModified by Organization Details LastModified Time None Recorded Payers Encounter Date Sequence Insurance Name Policy Number Policy Guillen Covered Member ID Guillen Member ID Guarantor Name 06/30/2024 1 [facility] PLAN (MEDICAID HMO) [id number] Stephani Goins [id number] Stephani Goins Notes Date Note Type Note Provider Name and Address Organization Details Recorded Time 06/30/2024 text/html 48yo female with GERD and TMJ presents for reevaluation of throat clicking sensation. This started 6+ years ago and has been worked up with FOL x3, CT neck 2019, and swallow study in 2019. She reports the sensation is now associated with right-sided neck pain that radiates to her right ear. The clicking is triggered by sneezing or head position change. She feels she manually has to put something back into place. No associated breathing or swallowing difficulties. No issues eating or drinking regularly. She has a history of multinodular goiter and is followed closely by endocrinology. No smoking history. ISMA ZHANG MD [address] [place] [address], [place], [address], [place] - [facility] 06/30/2024 17:26:26 OBGyn Episode No OBEpisode recorded.
--- OUTSIDE RECORDS SUMMARY | 2024-07-12 16:10 | XMS_ITS | Clinical Summary ---
Author Organization [facility] Address [address] [place] [address] Care Team Providers Care Flour Tester Name Role Phone Unavailable Primary Care Provider Unavailabl e Surgical History Surgery Date Site/Laterality Comments SECTION PROCEDURE: [place] DELIVERY ONLY; COMMENT: X 3 Medical History Medical History Date Comments Genital herpes 07/10/2009 DX:Genital herpe s IBS (irritable bowel syndrome) D X:IBS (irritable bowel syndrome) GERD (gastroesophageal reflux disease) DX:GERD (gastroesophageal reflux disease) Anxiety and depression DX:Anxiet y and depression Subclinical hyperthyroidism DX:S ubclinical hyperthyroidism; COMMENT: endo f/u Dr. Bennett Thyroid nodule DX:Thyroid nodul e Back pain DX:Back pain GERD (gastroesophageal reflux disease) DX:GERD (gastroesophageal reflux disease) Family History Medical History Relation Name Comments Hypertension Aunt Breast cancer Father BRCA negative Hyperlipidemia Father Prostate cancer Maternal Grandfather Arthritis Maternal Grandmother Hypertension Maternal Grandmother Stroke Maternal Grandmother Thyroid disease Maternal Grandmother Hypo thyroid Hyperlipidemia Mother Hypertension Mother Asthma Sister 1 2 sisters with mild asthma Coronary artery disease Uncle 1 mat uncle Other: myocardial infarction Uncle 1 mat; age 38 Diabetes Uncle 2 mat Blindness Neg Hx Cataracts Neg Hx Colon cancer Neg Hx Glaucoma Neg Hx Macular degeneration Neg Hx Ovarian cancer Neg Hx Strabismus Neg Hx Relation Name Status Comments Aunt maternal aunt Father Alive Maternal Grandfather Maternal Grandmother Alive Mother Alive ANXIETY, HTN Paternal Grandfather Paternal Grandmother Alive Sister 1 Alive Sister 2 Alive Uncle 1 (Age 36) Uncle 2 Social History Tobacco Use Types Packs/Day Years Used Date Smoking Tobacco: Never Smokeless Tobacco: Never Alcohol Use Standard Drinks/Week Comments Yes 0 (1 standard drink = 0.6 oz pur e alcohol) Comments Unknown Sex and Gender Information Value Date Recorded Sex Assigned at Not on file Legal Sex Female 2:56 PM EST Gender Identity Not on file Sexual Orientation Not on file Obstetrics History Plan of Treatment Upcoming Encounters Date Type Department Care Team (Lindsey st Contact Info) Description 08/01/2024 10:00 AM EDT [facility]ointment [facility] [address] [address] Health Maintenance Due Date Last Done Comments Hepatitis B Vaccines (1 of 3 - 19+ 3-dose series) 1993 Pneumococcal Vaccine: Pediatrics (0 to 5 Years) and At-Risk Patients (6 to 64 Years) (1 of 2 - PCV) 1993 Cervical Cancer Screening: Pap Smear 12/27/1995 Colorectal Cancer Screening: Colonoscopy 04/16/2022 Depression Screening 04/16/2022 HIV Screening 04/16/2022 Hepatitis C Screening 04/16/2022 Social Influencers of Health Screening 04/16/2022 COVID-19 Vaccine ( season) 2024 Influenza Vaccine (#1) 2024 9, 03/19/2018, 02/13/2017, Additional history exists Breast Cancer Screening 08/22/2024 08/23/19 23, 03/22/2021, 01/04/2020, Additional history exists DTaP,Tdap,and Td Vaccines (3 - Td or Tdap) 06/05/2027 06/05/2017, 01/12/2007 HIB Vaccines Aged Out No longer eligi ble based on patient's age to complete this topic HPV Vaccines Aged Out No longer eligi ble based on patient's age to complete this topic Hepatitis A Vaccines Aged Out No long er eligible based on patient's age to complete this topic IPV Vaccines Aged Out No longer eligi ble based on patient's age to complete this topic MMR Vaccines Aged Out No longer eligi ble based on patient's age to complete this topic Meningococcal ACWY Vaccine Aged Out N o longer eligible based on patient's age to complete this topic Meningococcal B Vacine Aged Out No lo nger eligible based on patient's age to complete this topic RSV Immunization Patients Under 20 months Aged Out No longer eligible based on patient's age to complete this topic Varicella Vaccines Aged Out No longer eligible based on patient's age to complete this topic Procedures Procedure Name Priority Date/Time Associated Diagnosis Comments NIDIA SCREENING DIGITAL Routine 08/22/2022 9:55 AM EDT Encounter for screening mammogram for malignant neoplasm of breast from Last 3 Months or Most Recently Relevant to Health Maintenance Results * NIDIA SCREENING DIGITAL (08/22/2022 9:55 AM EDT) Anatomical Region Laterality Modality Mammography 08/20/2022 8:48 AM EDT Narrative 08/22/2022 9:55 AM EDT [facility] Diagnostic Imaging Department [address] [place] [address] Patient: ??BARRY ROSE ?/Age/Sex: 1975 - 46 - F Unit#: ??[id number] ? Location/Status: ??[facility] CLI ? Mnemonic/Ordering Site: ??DIGSC/[facility] Ordering Physician: ??ANATOLIY BATISTA MD [facility] Screening Digital - 08/20/22915 HISTORY: The patient is a 46-year-old female presenting for routine screening mammography. FINDINGS: ??CC and MLO views of both breasts were obtained using full field digital mammography in the [employer] 2000-D unit. Computer aided detection with the iCAD Second Look 7.2-H was employed. In addition, breast tomosynthesis in MLO projection was performed. The breasts are again seen to be composed of a combination of fatty and fibroglandular elements (scattered areas of fibroglandular density, category B density, as calculated by Eyeotapara software), mildly decreased in density as compared to prior studies most recently 03/22/2021 and most remotely 01/06/2017. ??The 10 mm mass at the 6:00 position of the left breast seen on the prior study, and demonstrated to represent a cyst on ultrasound examination performed 03/26/2021, is no longer demonstrated. ??There is no cluster of microcalcifications, mass, or area of architectural distortion. There is no skin thickening or nipple retraction. IMPRESSION: No mammographic evidence of malignancy. A negative mammogram in the presence of a clinically suspicious palpable abnormality does not preclude the possibility of malignancy or alter the indications for biopsy. BIRADS Code Class 1: ??Negative PQRI CPT II 3341F Code 43011, 73967 PQRI 225 CPT II 7025F Dictating Physician: ??ENEIDA EVANS MD Electronically Signed by: ??ENEIDA EVANS MD Dic Date/Time: ??08/22/22 0950 Sign date/Time: ??08/22/22 0955 Procedure Note Eneida Evans MD - 06/19/2023 [facility] Diagnostic Imaging Department [address] [place] [address] Patient: ROSEBARRY.O.B./Age/Sex: 1975 - 46 - F Unit#: [id number] Location/Status: [facility] CLI Mnemonic/Ordering Site: [facility] Ordering Physician: ANATOLIY BATISTA MD [facility] Screening Digital - 08/20/22915 HISTORY: The patient is a 46-year-old female presenting for routinescreening mammography. FINDINGS: CC and MLO views of both breasts were obtained using fullfield digital mammography in the [employer] 2000-D unit. Computer aideddetection with the iCAD Second Look 7.2-H was employed. In addition, breasttomosynthesis in MLO projection was performed. The breasts are again seen to be composed of a combination of fatty and fibroglandular elements (scattered areas of fibroglandular density,category B density, as calculated by Eyeotapara software), mildly decreased indensity as compared to prior studies most recently 03/22/2021 and most remotely 01/06/2017. The 10 mm mass at the 6:00 position of the left breast seen onthe prior study, and demonstrated to represent a cyst on ultrasoundexamination performed 03/26/2021, is no longer demonstrated. There is no cluster of microcalcifications, mass, or area of architectural distortion. There isno skin thickening or nipple retraction. IMPRESSION: No mammographic evidence of malignancy. A negative mammogram in the presence of a clinically suspicious palpable abnormality does not preclude the possibility of malignancy or alter the indications for biopsy. BIRADS Code Class 1: Negative PQRI CPT II 3341F Code 58905, 13495 PQRI 225 CPT II 7025F Dictating Physician: ENEIDA EVANS MD Electronically Signed by: ENEIDA EVANS MD Dic Date/Time: 08/22/22 0950 Sign date/Time: 08/22/2255 us Anatoliy Batista MD IMG BI PROCEDURES Final Resul t from Last 3 Months or Most Recently Relevant to [place] [address]
--- OUTSIDE RECORDS SUMMARY | 2024-07-12 16:10 | XMS_ITS | Continuity of Care Document ---
Author Organization [facility] Address [address] [place] [address]- Care Team Providers Care Sales Recruiting Coordinator Name Role Phone Not on Staff, PCP Primary Care Physician Unavail able Encounter [facility] Date(s): 05/30/24 - 07/03/24 [facility] [address] [place] [id number] Attending Physician: Ilia Nagel MD Encounter Type: Pre Office Visit Allergies, Adverse Reactions, Alerts Substance Criticality Severity Reaction Reaction Severity Status Adhesive Bandage rash Act dolores Medications acetaminophen/butalbital/caffeine 300 mg-50 mg-40 mg oral capsule 10 each, 0 Refill(s), TAKE 1 CAPSULE BY MOUTH EVERY 4 HOURS NEEDED UP TO 3 TIMES PER DAY FOR HEADACHE, 0 Refills, 01/14/23 1:10:00 PM EDT, Partial fill upon patient request if the prescription is for a schedule II opioid drug. Start Date: 01/14/23 Status: Ordered Repeat number: 1 Bentyl 10 mg oral capsule 1 capsule = 10 mg, By Mouth, 4 times a day, # 40 capsule, 0 Refills, Maintenance, 06/17/11 11:45:05 PM EST, Capsule, [facility] - [address] Start Date: 06/17/11 Stop Date: 06/27/11 Status: Ordered Quantity: 40.0 Unit: capsule Repeat number: 1 Bentyl 10 mg oral capsule 1 capsule = 10 mg, By Mouth, 4 times a day, # 40 capsule, 0 Refills, Maintenance, 06/17/11 11:46:37 PM EST, Capsule, [facility] - [address] Start Date: 06/17/11 Stop Date: 06/27/11 Status: Ordered Quantity: 40.0 Unit: capsule Repeat number: 1 Buspar Tablet 5 mg, By Mouth, 2 times a day, Maintenance, 07/01/11 1:08:28 AM EST Start Date: 07/01/11 Status: Ordered Repeat number: 1 Excedrin By Mouth, Every 6 hours, 0 Refills, Maintenance, 07/28/22 5:00:00 PM EDT, Partial fill upon patient request if the prescription is for a schedule II opioid drug. Start Date: 07/28/22 Status: Ordered Repeat number: 1 Famotidine 0 Refills, Maintenance, 07/28/22 4:59:00 PM EDT, Partial fill upon patient request if the prescription is for a schedule II opioid drug. Start Date: 07/28/22 Status: Ordered Repeat number: 1 famotidine 20 mg oral tablet 90 each, 0 Refill(s), TAKE 1 TABLET BY MOUTH EVERY DAY FOR 90 DAYS, Refills 0, 01/14/23 1:10:00 PM EDT, Partial fill upon patient request if the prescription is for a schedule II opioid drug. Start Date: 01/14/23 Status: Ordered Repeat number: 1 LORazepam 0.5 mg oral tablet 30 each, 0 Refill(s), TAKE 1 TABLET BY MOUTH EVERY DAY NEEDED FOR ANXIETY, 0 Refills, 01/14/23 1:11:00 PM EDT, Partial fill upon patient request if the prescription is for a schedule II opioid drug. Start Date: 01/14/23 Status: Ordered Repeat number: 1 methimazole 5 mg oral tablet 90 each, 0 Refill(s), TAKE 1 TABLET BY MOUTH EVERY DAY FOR 90 DAYS, Refills 0, 01/14/23 1:11:00 PM EDT, Partial fill upon patient request if the prescription is for a schedule II opioid drug. Start Date: 01/14/23 Status: Ordered Repeat number: 1 methimazole 5 mg oral tablet 2.5 mg, 0.5, tablet, By Mouth, Daily, # 15 tablet, Refills 11, Tot. Refills 11, Maintenance, 01/14/23 1:54:00 PM EDT, Route to Pharmacy Electronically, [facility]/pharmacy #[id number], Partial fill upon patient request if the prescription is for a schedule II opioid drug., 167.64, cm, 01/14/23 13:09:00 EDT, Height, 76, kg, 07/30/22 9:17:00 EDT, Dry Weight Start Date: 01/14/23 Stop Date: 01/09/24 Status: Ordered Quantity: 15.0 Unit: tablet Repeat number: 12 Patient Care team information Care Team Personnel Name: Not on Staff, PCP Position: S Physician (General Medicine) Member Role: PCP Care Team Related Persons Name: RADHA CANALES Name: JAMIL ROSE Name: NGHIA ARIZA Insurance Providers Guarantor name: BARRY ROSE Health Plan Information #: 1 Payer: [employer] Member Number: [id number] Policy Number: NA Group Number: NA Health Plan Information #: 2 Payer: [employer] Member Number: [id number] Policy Number: NA Group Number: NA
--- OUTSIDE RECORDS SUMMARY | 2024-07-12 16:10 | XMS_ITS | Clinical Summary ---
Author Organization [facility] Address [address] [place] [address] Care Team Providers Care Navy Diver Name Role Phone Mandi Lu RD Primary Care Provider [phone] Source Comments PLEASE NOTE, if this patient is a minor, it may be UNLAWFUL to discuss sensitive information that is contained in these records (such as FAMILY PLANNING, MENTAL HEALTH or SUBSTANCE ABUSE) with the minor patient's parent or other person without the patient's specific authorization.[facility] Social History Tobacco Use Types Packs/Day Years Used Date Smoking Tobacco: Never Assessed Comments Unknown Sex and Gender Information Value Date Recorded Sex Assigned at Not on file Legal Sex Female 1:31 PM PDT Gender Identity Not on file Sexual Orientation Not on file Last Filed Vital Signs Vital Sign Reading Time Taken Comments Blood Pressure - - Pulse - - Temperature - - Respiratory Rate - - Oxygen Saturation - - Inhaled Oxygen Concentration - - Weight 70.8 kg (156 lb) 02/15/2013 12:03 PM EDT Height 167.6 cm (5' 6 ) 02/15/2013 12:03 PM EDT Body Mass Index 25.18 02/15/2013 12:03 PM EDT Plan of Treatment Not on file Goals Goal Patient Goal Type Associated Problems Recent Progress Patient-Stated? Author Have 3 meals a day Diet No Mandi Lu RD Reduce sugar intake to X grams per day Diet No Mandi Lu RD Reduce fast food intake Diet No Mandi Lu RD Increase physical activity Exercise No Mandi Lu RD Increase physical activity Exercise No Mandi Lu RD Insurance [facility] [employer] [facility] Member Subscriber Plan / Payer (Ef fective 2013-Present) Name:Stephani Goins Relation to Subscriber:Self Name:Stephani Goins Payer ID:[id number] Group ID:[id number] Type:Medicaid Address: [address] [address] [place] [address] Care Teams Navy Diver Relationship Specialty Start Date End Date Mandi Lu [address] [place] [address] PCP - General Dentist Plumber Supervisor 02/15/13
--- OUTSIDE RECORDS SUMMARY | 2024-07-12 16:10 | XMS_ITS | Data Portability ---
Author Organization [facility], Allergy Address [address] [address] Care Team Providers Care Electronic Systems Technician Name Role Phone ZENA VALENTINO Primary Care Provider [phone] Assessment Encounter Date Assessment Date Assessment LastModified [...] this time. Offered to refer her to [facility] for an additional opinion if she [...] Organization Details Recorded Time Mass of neck 205975389 Active 2018 Localized swelling, mass and lump, neck; Location: right Not e: Date Diagnosed : 12/28/2018 3:00 PM (R22.1) Not Available [facility] 4 02:21:22 Neck swelling 880275207 Active 2018 Localized swelling, mass and lump, neck; Location: right Not e: Date Diagnosed : 12/28/2018 3:00 PM (R22.1) Not Available [facility] 4 02:21:22 Respirato ry finding 512638452 Active 2019 Feeling of foreign body in throat; Note: Date Diagnosed : 09/22/2019 4:32 PM (R09.89) Not Available [facility] 4 02:21:59 Cardiovas cular finding 681093871 Active 2019 Feeling of foreign body in throat; Note: Date Diagnosed : 09/22/2019 4:32 PM (R09.89) Not Available [facility] 4 02:21:59 Laryngeal spasm 537300581 Active 2019 Laryngeal spasm; Note: Date Diagnosed : 02/24/2020 3:00 PM (J38.5) Not Available [facility] 4 02:21:41 Pain of right temporoma ndibular joint 73754676076 761257 Active 2022 Arthralgi a of right temporoma ndibular joint; Note: Date Diagnosed : 04/21/2023 4:10 PM (M26.621) Not Available [facility] 4 02:21:52 Somatofor m disorder 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 - [facility] 5 13:07:28 Impacted cerumen in right ear 72197342751 18206 Active 2024 NATALIYA ZAMORA PA-C [address] [facility],[place] [address], [place], [address] , [facility] - [facility] 13:08:59 Problem Notes None recorded. Procedures Surgical History Date Name Laterality Status Provider Name and Address Organization Details Recorded Time Cerumen removal without microscope right completed NATALIYA ZAMORA PA-C [address] [facility], [place], [address], [facility] 06/30/2024 12:58:58 Imaging Results None recorded. [...] 4 mg tablet active Medicati on ID: [id number] B rand Name: ondanset alpesh HCl Send Method: E-Prescr ibed Sub s Allowed: subs OK Medic ationGen ericName : ondanset alpesh HCl Not Available Not Available Not Available famotidin e 40 mg tablet active Medicati on ID: [id number] B rand Name: famotidi ne Send Method: [...] mg tablet 09/10 completed Medicati on ID: [id number] B rand Name: ibuprofe n Send Method: [...] elayed release 09/10 completed Medicati on ID: [id number] D uration Value: 30 Brand Name: omeprazo [...] 50 mg tablet active Medicati on ID: [id number] B rand Name: sertrali ne Send Method: E-Prescr ibed Sub s Allowed: subs OK Medic ationGen ericName : sertrali ne Not Available Not Available Not Available Vitamin D3 50 mcg (2,000 unit) tablet TAKE 1 TABLET BY MOUTH EVERY DAY FOR 90 DAYS active Not Available Not Available No t Available Vienva 0.1 mg-20 mcg tablet active Medicati on ID: [id number] B rand Name: Viboazva S end Method: E-Prescr ibed Sub s [...] SNOMED-CT Code Diagnosis ICD10 Code Diagnosis Note [id number] ISMA ZHANG MD [facility] of [address] [address] 06/30/2024 10:18:42 06/30/2024 11:25:41 Pain of right temporomandibular joint 5596002185 5525147 M26.621 Feeling of lump in throat 581741514 R09.89 Impacted c erumen in right ear 6999216490 920921 H61.21 Health Concerns Section Related Observation LastModified by Organization Detai ls LastModified Time None Recorded Concern Status LastModified by Organization Details LastModified Time None Recorded Advance Directives Directive None Recorded Payers Encounter Date Sequence Insurance Name Policy Number Policy Guillen Covered Member ID Guillen Member ID Guarantor Name 06/30/[address] [facility] - HEALTH NET PLAN (MEDICAID HMO) [id number] Stephani Goins [id number] Stephani Goins Notes Date Note Type [...] endocrinology. No smoking history. ISMA ZHANG MD [address] [place] [address], [place], [address], [facility] - [facility] 06/30/2024 17:26:26 OBGyn Episode No OBEpisode recorded.
--- OUTSIDE RECORDS SUMMARY | 2024-07-12 16:10 | XMS_ITS | Continuity of Care Document ---
Author Organization [facility]olo [facility] and Diabetes Address [address] [place] [address] Care Team Providers Care Store Associate Name Role Phone Not on Staff, PCP Primary Care Physician Unavail able [place] [facility] [place]/24 [facility] Diabetes [address] [place] [address] Attending Physician: Isabelle Aguilar Admitting Physician: Isabelle Aguilar Referring Physician: Isabelle Aguilar Encounter Type: Triage Allergies, Adverse Reactions, Alerts Substance Criticality Severity [...] 1:54:00 PM EDT, Route to Pharmacy Electronically, [facility]/pharmacy #[id number], Partial fill upon patient request if [...] NGHIA ARIZA Insurance Providers Guarantor name: BARRY [facility] Plan Information #: 1 Payer: [employer] SENSE [facility] Member Number: NA Policy Number: NA Group Number: NA
--- OUTSIDE RECORDS SUMMARY | 2024-07-12 16:10 | XMS_ITS ---
Author Name [facility] Organization Unknown Results Test Name/Text Value Interpretation Date Range Source SODIUM 142mmol/L Normal [id number] 136 - 145 [facility] GLUCOSE 83mg/dL Normal 560760316762 74 - 106 [facility] BUN 14mg/dL Normal 818121942727 9 - 23 [facility] CHLORIDE 107mmol/L Normal [id number] 98 - 107 [facility] POTASSIUM SERUM 3.8mmol/L Normal 898982820665 3.5 - 5.1 C [facility] CO2 28mmol/L Normal [id number] 20 - 31 [facility] CREATININE 1.02mg/dL Normal [id number] 0.55 - 1.02 [facility] TSH 1.79uIU/mL Normal [id number] 0.55 - 4.78 [facility] TROPONIN I HIGH SENSITIVE < 2.50 Below low normal [id number] 2.5 - 34 [facility] WBC 8.8K/uL Normal [id number] 3.7 - 10.3 [facility] ABSOLUTE GRANULOCYTES 4.9K/uL Normal [id number] 2.2 - 7.3 [facility] ABSOLUTE BASO 0.1K/uL Normal [id number] 0 - 0.2 [facility]P [facility] RBC 4.62M/uL Normal [id number] 4 - 5.4 [facility] IMMATURE GRANULOCYTES 1% Above high normal [id number] 18 0 - 0.45 [facility] EOSINOPHILS 2% Normal [id number] 0 - 6 [facility] MPV 9fL Normal [id number] 8 - 12 [facility] ABSOLUTE MONOS 0.7K/uL Normal [id number] 0.2 - 1.5 CT [facility] BASOPHILS 1% Normal [id number] 0 - 2 [facility] NUCLEATED RBC 0% Normal [id number] 0 - 0.2 [facility] MCV 87fL Normal [id number] 83 - 102 [facility] MCH 29PG Normal [id number] 27 - 34 [facility] HCT 40.3% Normal [id number] 36 - 46 [facility] ABSOLUTE LYMPHS 3K/uL Normal [id number] 1.5 - 4.9 C [facility] GRANULOCYTES 55% Normal [id number] 23 - 78 [facility] MONOCYTES 8% Normal [id number] 0 - 12 [facility] ABSOLUTE EOS 0.1K/uL Normal [id number] 0 - 0.7 [facility] LYMPHS 34% Normal [id number] 16 - 50 [facility] ABSOLUTE IMMATURE GRANULOCYTES 0K/uL Normal [id number] 0 - 0.3 CTPR HGB 13.5g/dL Normal [id number] 12.1 - 15.7 CTP RG RDW 11.9% Normal [id number] 11.1 - 13.3 [facility] PLATELET COUNT 319K/uL Normal [id number] 150 - 480 CT [facility] MCHC 33.5g/dL Normal [id number] 31 - 36 [facility] ABSOLUTE NUCLEATED RBC 0K/uL Normal [id number] 0 - 0.012 [facility] PAT[facility] FAST[facility]? UNKNOWN Normal [id number] [facility] GFRE 60 Normal [id number] 60 - [facility] SODIUM 141mmol/L Normal [id number] 136 - 145 [facility] GLUCOSE 111mg/dL Above high normal [id number] 74 - 100 [facility] BUN 11mg/dL Normal [id number] 7 - 18 [facility] CHLORIDE 108mmol/L Above high normal [id number] 98 - 107 [facility] POTASSIUM SERUM 3.7mmol/L Normal 730259371761 3.5 - 5.1 C [facility] CO2 25mmol/L Normal [id number] 21 - 32 [facility] CREATININE 1.04mg/dL Normal [id number] 0.55 - 1.3 [facility] WBC 8.9K/uL Normal [id number] 3.7 - 10.3 CTPR ABSOLUTE GRANULOCYTES 6.8K/uL Normal [id number] 2.2 - 7.3 [facility] ABSOLUTE BASO 0K/uL Normal [id number] 0 - 0.2 [facility]P [facility] RBC 4.64M/uL Normal [id number] 4 - 5.4 CTPR H IMMATURE GRANULOCYTES 0% Normal [id number] 0 - 0 .45 CTPR EOSINOPHILS 0% Normal [id number] 0 - 6 CTP RG MPV 9fL Normal [id number] 8 - 12 [facility] H ABSOLUTE MONOS 0.9K/uL Normal [id number] 0.2 - 1.5 CT [facility] BASOPHILS 0% Normal [id number] 0 - 2 [facility] H NUCLEATED RBC 0% Normal [id number] 0 - 0.2 CTP R MCV 87fL Normal [id number] 83 - 102 CTPR H MCH 30PG Normal [id number] 27 - 34 [facility] H HCT 40.4% Normal [id number] 36 - 46 [facility] ABSOLUTE LYMPHS 1.1K/uL Below low normal [id number] 1.5 - 4.9 [facility] GRANULOCYTES 77% Normal [id number] 23 - 78 [facility] MONOCYTES 10% Normal [id number] 0 - 12 [facility] H ABSOLUTE EOS 0K/uL Normal [id number] 0 - 0.7 [facility] LYMPHS 13% Below low normal [id number] 16 - 50 CTPR ABSOLUTE IMMATURE GRANULOCYTES 0K/uL Normal [id number] 0 - 0.3 [facility] HGB 13.7g/dL Normal [id number] 12.1 - 15.7 [facility] RDW 11.9% Normal [id number] 11.1 - 13.3 [facility] PLATELET COUNT 267K/uL Normal [id number] 150 - 480 CT [facility] MCHC 33.9g/dL Normal [id number] 31 - 36 [facility] H ABSOLUTE NUCLEATED RBC 0K/uL Normal [id number] 0 - 0.012 [facility] PATIENT FASTING? UNKNOWN Normal [id number] [facility] SODIUM 141mmol/L Normal [id number] 136 - 145 [facility] GLUCOSE 104mg/dL Above high normal [id number] 74 - 100 [facility] BUN 10mg/dL Normal [id number] 7 - 18 [facility] CHLORIDE 109mmol/L Above high normal [id number] 98 - 107 [facility] POTASSIUM SERUM 4.3mmol/L Normal 3.5 - 5.1 C [facility] CO2 25mmol/L Normal 21 - 32 [facility] CREATININE 0.86mg/dL Normal 0.55 - 1.3 [facility] GFRE 75 Normal 60 - [facility] H WBC 7K/uL Normal 3.7 - 10.3 [facility] GH ABSOLUTE GRANULOCYTES 4.4K/uL Normal 2.2 - 7.3 [facility] ABSOLUTE BASO 0.1K/uL Normal 0 - 0.2 [facility] RBC 4.74M/uL Normal 4 - 5.4 [facility] IMMATURE GRANULOCYTES 0% Normal 0 - 0 .45 [facility] EOSINOPHILS 1% Normal 0 - 6 [facility] MPV 10fL Normal 8 - 12 [facility] ABSOLUTE MONOS 0.4K/uL Normal 0.2 - 1.5 CT [facility] BASOPHILS 1% Normal 0 - 2 [facility] H NUCLEATED RBC 0% Normal 0 - 0.2 [facility] MCV 88fL Normal 83 - 102 [facility] MCH 30PG Normal 27 - 34 [facility] HCT 41.9% Normal 36 - 46 [facility] ABSOLUTE LYMPHS 2K/uL Normal 1.5 - 4.9 C [facility] GRANULOCYTES 63% Normal 23 - 78 [facility] MONOCYTES 6% Normal 0 - 12 [facility] ABSOLUTE EOS 0.1K/uL Normal 0 - 0.7 [facility] LYMPHS 29% Normal 16 - 50 [facility] ABSOLUTE IMMATURE GRANULOCYTES 0K/uL Normal 0 - 0.3 [facility] HGB 14.1g/dL Normal 12.1 - 15.7 [facility] RDW 11.9% Normal 11.1 - 13.3 [facility] PLATELET COUNT 342K/uL Normal 150 - [address] CT [facility] MCHC 33.7g/dL Normal 31 - 36 [facility] H ABSOLUTE NUCLEATED RBC 0K/uL Normal 0 - 0.012 [facility] PATIENT FASTING? UNKNOWN Normal [facility]
--- OUTSIDE RECORDS SUMMARY | 2024-07-12 16:11 | XMS_ITS | Continuity of Care Document ---
Author Organization [facility] Address [address] [place] [address] Care Team Providers Care Biometric Fingerprinting Technician Name Role Phone Not on Staff, PCP Primary Care Physician Unavail able [place] [facility] [place] - 06/18/[address] [address] Encounter Type: Pre-OutPatient One Time Allergies, Adverse Reactions, Alerts Substance Criticality Severity [...] 1:54:00 PM EDT, Route to Pharmacy Electronically, [facility]/pharmacy [facility][id number], Partial fill upon patient request if [...] [facility] Health Plan Information #: 1 Payer: [employer] Member Number: [id number] Policy Number: NA Group Number: NA Health Plan Information #: 2 Payer: [employer] Member Number: [id number] Policy Number: NA Group Number: NA
== END 2024-07-12 14:06 | disposition home or self-care (01) ==
PROVIDERS: PCP Family Medicine; Visit Provider Student in an Organized Health Care Education/Training Program
DX: E05.90 Thyrotoxicosis, unspecified without thyrotoxic crisis or storm (principal); E21.3 Hyperparathyroidism, unspecified
CPT/HCPCS: 99205

== ENCOUNTER → 2024-07-12 13:13 | Outpatient (BNVA) | payer OTHER, SELFPAY | PROVIDERS: PCP Family Medicine; Visit Provider Student in an Organized Health Care Education/Training Program | DX: E21.3 Hyperparathyroidism, unspecified (principal); E05.90 Thyrotoxicosis, unspecified without thyrotoxic crisis or storm | CPT/HCPCS: 99202 ==

== ENCOUNTER 2024-07-29 14:03 | Outpatient (REF) | payer OTHER, SELFPAY ==
[2024-07-29 15:16] LABS: Albumin Level 4.2 g/dL (3.5-5.0); Anion Gap 12 (12-20); Blood Urea Nitrogen 12 mg/dL (9-16); Carbon Dioxide 27 mmol/L (22-29); Chloride 108 mmol/L (96-108); Estimated Glomerular Filt Rate > 60; Glucose Random 95 mg/dL (60-115); Magnesium 2.1 mg/dL (1.6-2.6); Phosphorus 3.3 mg/dL (2.7-4.5); Potassium 3.7 mmol/L (3.3-5.1); Sodium 143 mmol/L (135-145)
[2024-07-29 15:17] LABS: Parathyroid Hormone Intact 93.4 pg/mL (8.7-77.1)
[2024-07-29 15:34] LABS: Thyroid Stimulating Hormone 1.47 uIU/mL (0.32-4.0)
--- OUTSIDE RECORDS SUMMARY | 2024-07-29 15:45 | XMS_ITS | Clinical Summary ---
Author Organization [facility] Address [address] [place] [address] Care Team Providers Care Geospatial Technologist Name Role Phone Unavailable Primary Care Provider Unavailabl e Surgical History Surgery Date Site/Laterality Comments SECTION PROCEDURE: HI DELIVERY ONLY; COMMENT: X 3 Medical History [...] AM EDT [facility] [address] [address] Health Maintenance Due Date Last [...] AM EDT Narrative 08/22/2022 9:55 AM EDT [facility] Diagnostic Imaging Department [address] [place] [address] Patient: ??BARRY ROSE ?/Age/Sex: 1975 - 46 - F Unit#: ??[id number] ? Location/Status: ??[facility] CLI ? Mnemonic/Ordering Site: ??DIGSC/SPMAM Ordering Physician: ??ANATOLIY BATISTA MD [facility] Screening Digital - 08/20/22915 HISTORY: The patient is a 46-year-old female presenting for routine screening mammography. FINDINGS: ??CC and MLO views of both breasts were obtained using full field digital mammography in the EcoGroomerographe 2000-D unit. Computer aided detection with the iCAD Second Look 7.2-H was employed. In addition, breast tomosynthesis in MLO projection was performed. The breasts are again seen to be composed of a combination of fatty and fibroglandular elements (scattered areas of fibroglandular density, category B density, as calculated by Zigfupara software), mildly decreased in density as compared [...] 1: ??Negative PQRI CPT II 3341F Code 63996, 59081 PQRI 225 CPT II 7025F Dictating Physician: ??ENEIDA EVANS MD Electronically Signed by: ??ENEIDA EVANS MD Dic Date/Time: ??08/22/22 0950 Sign date/Time: ??08/22/22 0955 Procedure Note Eneida Evans MD - 06/19/2023 [facility] Diagnostic Imaging Department [address] [place] [address] Patient: ROSEBARRY.O.B./Age/Sex: 1975 - 46 - F Unit#: [id number] Location/Status: [facility] CLI Mnemonic/Ordering Site: [facility] Ordering Physician: ANATOLIY BATISTA MD [facility] Screening Digital - 08/20/22915 HISTORY: The patient is a 46-year-old female presenting for routinescreening mammography. FINDINGS: CC and MLO views of both breasts were obtained using fullfield digital mammography in the EcoGroomerographe 2000-D unit. Computer aideddetection with the iCAD Second Look 7.2-H was employed. In addition, breasttomosynthesis in MLO projection was performed. The breasts are again seen to be composed of a combination of fatty and fibroglandular elements (scattered areas of fibroglandular density,category B density, as calculated by Zigfupara software), mildly decreased indensity as compared to [...] 1: Negative PQRI CPT II 3341F Code 93214, 09515 PQRI 225 CPT II 7025F Dictating Physician: ENEIDA EVANS MD Electronically Signed by: ENEIDA EVANS MD Dic Date/Time: 08/22/22 0950 Sign date/Time: 08/22/2255 us Anatoliy Batista MD IMG BI PROCEDURES Final Resul t from Last 3 Months or Most Recently Relevant to Health Maintenance Insurance
--- OUTSIDE RECORDS SUMMARY | 2024-07-29 15:45 | XMS_ITS | Data Portability ---
Author Organization [facility], Allergy Address [address] [address] Care Team Providers Care O And M Supervisor Name Role Phone ZENA VALENTINO Primary Care [...] this time. Offered to refer her to [facility] for an additional opinion if she [...] Organization Details Recorded Time Mass of neck 153305260 Active 2018 Localized swelling, mass and lump, neck; Location: right Not e: Date Diagnosed : 12/28/2018 3:00 PM (R22.1) Not Available [facility] 4 02:21:22 Neck swelling 368643304 Active 2018 Localized swelling, mass and lump, neck; Location: right Not e: Date Diagnosed : 12/28/2018 3:00 PM (R22.1) Not Available [facility] 4 02:21:22 Respirato ry finding 197419123 Active 2019 Feeling of foreign body in throat; Note: Date Diagnosed : 09/22/2019 4:32 PM (R09.89) Not Available [facility] 4 02:21:59 Cardiovas cular finding 172308496 Active 2019 Feeling of foreign body in throat; Note: Date Diagnosed : 09/22/2019 4:32 PM (R09.89) Not Available [facility] 4 02:21:59 Laryngeal spasm 758017630 Active 2019 Laryngeal spasm; Note: Date Diagnosed : 02/24/2020 3:00 PM (J38.5) Not Available [facility] 4 02:21:41 Pain of right temporoma ndibular joint 25968554833 104997 Active 2022 Arthralgi a of right temporoma ndibular joint; Note: Date Diagnosed : 04/21/2023 4:10 PM (M26.621) Not Available [facility] 4 02:21:52 Somatofor m disorder 33694261 Active 2018 Psychogen ic dysphagia , including 'globus hystericu s'; Note: Date Diagnosed : 12/28/2018 2:44 PM (F45.8) Not Available [facility] 4 02:21:24 Feeling of lump in throat 310650676 Active 2024 NATALIYA ZAMORA PA-C [address] [place] [address], [place], [address] , [facility] - [facility] 5 13:07:28 Impacted cerumen in right ear 80023129699 98275 Active 2024 NATALIYA ZAMORA PA-C 100 [facility],[place] [address], [place], [address] , [facility] - [facility] 13:08:59 Problem Notes None recorded. Procedures Surgical History Date Name Laterality Status Provider Name and Address Organization Details Recorded Time Cerumen removal without microscope right completed NATALIYA ZAMORA PA-C 100 [facility], [place], [address], [facility] 06/30/2024 12:58:58 Imaging Results None recorded. Procedure [...] 4 mg tablet active Medicati on ID: [id number] B rand Name: ondanset alpesh HCl Send Method: E-Prescr ibed Sub s Allowed: subs OK Medic ationGen ericName : ondanset alpesh HCl Not Available Not Available Not Available famotidin e 40 mg tablet active Medicati on ID: [id number] B rand Name: famotidi ne Send Method: [...] mg tablet 09/10 completed Medicati on ID: [id number] B rand Name: ibuprofe n Send Method: [...] elayed release 09/10 completed Medicati on ID: [id number] D uration Value: 30 Brand Name: omeprazo [...] 50 mg tablet active Medicati on ID: [id number] B rand Name: sertrali ne Send Method: E-Prescr ibed Sub s Allowed: subs OK Medic ationGen ericName : sertrali ne Not Available Not Available Not Available Vitamin D3 50 mcg (2,000 unit) tablet TAKE 1 TABLET BY MOUTH EVERY DAY FOR 90 DAYS active Not Available Not Available No t Available Vienva 0.1 mg-20 mcg tablet active Medicati on ID: [id number] B rand Name: Viboazva S end Method: [...] SNOMED-CT Code Diagnosis ICD10 Code Diagnosis Note [id number] ISMA ZHANG MD [facility] [address] [address] 06/30/2024 10:18:42 06/30/2024 11:25:41 Pain of right temporomandibular joint 0343798528 0268125 M26.621 Feeling of lump in throat 290460523 R09.89 Impacted c erumen in right ear 9484715529 209854 H61.21 Health Concerns Section Related Observation LastModified by Organization Detai ls LastModified Time None Recorded Concern Status LastModified by Organization Details LastModified Time None Recorded Advance Directives Directive None Recorded Payers Encounter Date Sequence Insurance Name Policy Number Policy Guillen Covered Member ID Guillen Member ID Guarantor Name 06/30/2024 1 [facility] - HEALTH NET PLAN (MEDICAID HMO) [id number] Stephani Goins [id number] Stephani Goins Notes Date Note Type [...] endocrinology. No smoking history. ISMA ZHANG MD [address] [place] [address], [place], [address], [facility] - [facility] 06/30/2024 17:26:26 OBGyn Episode No OBEpisode recorded.
--- OUTSIDE RECORDS SUMMARY | 2024-07-29 15:45 | XMS_ITS | Continuity of Care Document ---
Author Organization [facility] Address [address] [place] [address] Care Team Providers Care Pediatric Geneticist Name Role Phone Not on Staff, PCP Primary Care Physician Unavail able Encounter [facility] [place] Date(s): 06/04/24 - 07/13/[address] [address] Attending Physician: Not on Staff, Attending MD Referring Physician: Juany Power MD Encounter Type: Pre-OutPatient One Time Allergies, Adverse [...] 1:54:00 PM EDT, Route to Pharmacy Electronically, [facility]/pharmacy #[id number], Partial fill upon patient request [...] NGHIA ARIZA Insurance Providers Guarantor name: BARRY MILTON Health Plan Information #: 1 Payer: [employer] Member Number: [id number] Policy Number: NA Group Number: NA Health Plan Information #: 2 Payer: [employer] Member Number: [id number] Policy Number: NA Group Number: NA
--- OUTSIDE RECORDS SUMMARY | 2024-07-29 15:45 | XMS_ITS | Clinical Summary ---
Author Organization [facility] Address [address] [place] [address] Care Team Providers Care Cipher Expert Name Role Phone Mandi Lu RD Primary Care Provider [phone] Source Comments PLEASE NOTE, if this patient [...] activity Exercise No Mandi Lu RD [facility] Member Subscriber Plan / Payer (Ef fective 2013-Present) Name:Stephani Goins Relation to Subscriber:Self Name:Stephani Goins Payer ID:[id number] Group ID:[id number] Type:Medicaid Address: [address] [address] [place] [address] Care Teams Cipher Expert Relationship Specialty Start Date End Date Mandi Lu [address] [place] [address] PCP - General Dentist Director Of Outpatient Services 02/15/13
[2024-07-29 16:09] LABS: Creatinine, mg/dL 79.37
[2024-07-30 06:37] LABS: Triiodothyronine T3 Total 110 ng/dL (76-181)
[2024-07-30 10:55] LABS: Creatinine, 24Hr Urine 1.6 G/Day (1.0-2.0); Total Volume 24 Hour Urine 2025 mL
[2024-07-30 12:38] LABS: Thyroid Peroxidase Antibodies <1 IU/mL (<9)
[2024-07-30 17:08] LABS: Calcium, 24 Hr Urine 203 mg/24 h; Calcium/Creatinine Ratio 125 mg/g creat (30-275); Creatinine 24Hr Urine 1.62 g/24 h (0.50-2.15)
[2024-08-01 11:09] LABS: Calcium, Ionized 5.2 mg/dL (4.7-5.5)
[2024-08-03 14:38] LABS: Thyroid Stimulating Immunoglob <89 % baseline (<140)
[2024-08-03 19:43] LABS: Thyrotropin Receptor Antibody <1.00 IU/L (<=2.00)
== END 2024-07-29 14:04 | disposition home or self-care (01) ==
LOC: HO.LAB 14:03
PROVIDERS: PCP Family Medicine; Visit Provider Student in an Organized Health Care Education/Training Program
DX: E05.90 Thyrotoxicosis, unspecified without thyrotoxic crisis or storm (principal); E21.3 Hyperparathyroidism, unspecified
CPT/HCPCS: 36415; 80048; 82040; 82306; 82330; 82340; 82570; 83520; 83735; 83970; 84100; 84439; 84443; 84445; 84480; 86376

== ENCOUNTER 2024-08-08 13:06 | Outpatient (REF) | payer OTHER, SELFPAY ==
--- NOTE | ~2024-08-08 | US_ITS ---
EXAMINATION: US THYROID HISTORY: E05.90 - Thyrotoxicosis, unspecified without thyrotoxic crisis or storm TECHNIQUE: Real-time grayscale ultrasound imaging was performed and images were reviewed. COMPARISON: There are no prior studies for comparison. FINDINGS: SIZE: The right thyroid lobe measures 5.8 x 2.1 x 1.5 cm. The left thyroid lobe measures 4.5 x 1.1 x 1.5 cm. The isthmus measures 3 mm. FLOW: Flow to the gland is mildly increased. ECHOGENICITY: The echotexture of the gland is homogeneous. NODULES: There are multiple subcentimeter nodules noted as described below: Nodule #: 1 Location: Midportion of the right thyroid lobe measuring 6 x 3 x 4 mm. Shape: Wider than tall (0 points) Margins: Ill-defined (0 points) Echotexture: Hypoechoic (2 points) Composition: Solid (2 points) Calcifications: None (0 points) Total points: 4 TIRADS: TR4: Moderately suspicious. Nodule #: 2 Location: Midportion of the right thyroid lobe measuring 4 x 3 x 3 mm. Shape: Round (0 points) Margins: Ill-defined (0 points) Echotexture: Isoechoic (1 point) Composition: Solid (2 points) Calcifications: None (0 points) Total points: 3 TIRADS: TR3: Mildly suspicious. Nodule #: 3 Location: Lower pole of the right thyroid lobe measuring 9 x 5 x 6 mm. Shape: Wider than tall (0 points) Margins: Ill-defined (0 points) Echotexture: Hypoechoic (2 points) Composition: Mostly solid (2 points) Calcifications: None (0 points) Total points: 4 TIRADS: TR4: Moderately suspicious. Nodule #: 4 Location: Isthmus, measuring 4 x 2 x 6 mm. Shape: Wider than tall (0 points) Margins: Smooth (0 points) Echotexture: Hypoechoic (2 points) Composition: Indeterminate (2 points) Calcifications: None (0 points) Total points: 4 TIRADS: TR4: Moderately suspicious. US/US thyroid IMPRESSION: Multiple subcentimeter thyroid nodules as described. ACR TI-RADS Guidelines TR1 (0 points): Benign, No follow-up or biopsy required TR2 (2 points): Not Suspicious, No biopsy or follow up indicated TR3 (3 points): Mildly Suspicious, FNA if >= 2.5 cm, Follow if >= 1.5 cm TR4 (4-6 points): Moderately Suspicious, FNA if >= 1.5 cm, Follow if >= 1.0 cm TR5 (>=7 points): Highly Suspicious, FNA if >= 1.0 cm, Follow if >= 0.5 cm Electronically signed by: David Shaikh MD 08/09/2024 07:41 AM EDT
== END 2024-08-08 13:07 | disposition home or self-care (01) ==
LOC: HO.US 13:06
PROVIDERS: PCP Family Medicine; Visit Provider Student in an Organized Health Care Education/Training Program
DX: E05.90 Thyrotoxicosis, unspecified without thyrotoxic crisis or storm (principal)
CPT/HCPCS: 76536

== ENCOUNTER → 2024-08-08 13:09 | Outpatient (BNV) | payer OTHER, SELFPAY | PROVIDERS: PCP Family Medicine; Visit Provider Radiology Diagnostic Radiology | DX: E04.9 Nontoxic goiter, unspecified (principal) | CPT/HCPCS: 76536 ==

== ENCOUNTER 2024-08-15 13:43 | Outpatient (AMB) | payer OTHER, SELFPAY ==
[2024-08-15 13:47] VITALS: BP 120/80; PULSE 104; O2SAT 100; BMI 28.5
--- NOTE | 2024-08-15 13:47 | A.OFFVIS_ITS ---
Vital Signs 08/15/24 13:47 Height 5 ft 6 in Weight 176 lb 5.917 oz BMI 28.5 BP 120/80 Blood Pressure Location Rt brachial Position Sitting Pulse 104 H Pulse Source Pulse Oximeter Pulse Oximetry (%) 100 Oxygen Delivery Method Room Air Intake Visit Reasons: Hyperthyroidism Intake Note: Patient present today for Hyperthyroidism office visit. Head Coach Required: No Accompanied by: Self / Same As Patient Allergies adhesive tape Allergy (Mild, Verified 08/15/24 13:49) Itching HPI Comments Details: 48-year-old female coming in today for follow up of hyperthyroidism and hyperparathyroidism. Patient was previously following with [facility] endocrinology, however due to insurance coverage changes has to change her endocrinology care. Hyperthyroidism 2011 during hyperemesis, found to have thyroid dysfunction then resolved Then 2013 : palpitation , anxiety, got evaluated got diagnosed with hyperthyroidism Was started on methimazole and then lost to follow up Then reestablished care with PCP 1 year ago and restarted methimazole. currently on metimazole 5 mg daily. Palpitation improved. Anxiety still present. Still tired , not improved. Diarrhea she is on imodium. Experiencing hot flashes, last period was 1 year ago. Gained 10 lbs since summer 2024. Patient currently denies changes in appearance of eyes or vision changes, tremors, increased diaphoresis or dry skin. ? Some intermittent dysphagia. Patient denies any pain on swallowing or voice changes or difficulty breathing. Patient denies any history of childhood neck radiation. Denies having ever used lithium, amiodarone or biotin supplements. Patient denies any family history of thyroid cancer. 2 cousins , one had hemithyroidectomy unclear reason, the other one had Graves disease and had thyroidectomy, paternal cousins. Labs 06/16/2024 TSH 0.97 Interval history Currently on methimazole 5 mg daily, she is adherent to it now Has lost around 20 lb since June 2023 Most recent labs 07/29/2024 showed normal TSH of 1.47, normal free T4 of 0.90, normal total T3 of 110, undetectable TSI antibodies of less than 89, negative TSH receptor and TPO antibodies of less than 1 Ultrasound thyroid 08/08/2024 showed bilateral subcentimeter thyroid nodules not meeting criteria for FNA or follow up. Per patient she has never had a thyroid uptake and scan, I also do not see this mentioned in the records were obtained from [facility]. Hyperparathyroidism Patient tells me she was also diagnosed with primary hyperparathyroidism back when she was following with [facility] endocrinology about a year ago. I do not have records of this, however labs from October 2023 showed normal calcium levels. US 2019 B/L nephrolithiasis per [facility] records ? she doesnt think she ever had kidney stones or a renal ultrasound for that matter, she thinks she has a sister of the same name and they confused their medical records because they almost of the same name No fractures sister had kidney stones and hyper parathyroidism On vitamin D 1000 units daily No calcium supplemnets [place] milk here and there, yogurt once a week. Interval history Most recent vitamin-D level 07/29/2024 of 31, other labs obtained 07/29/2024 showed calcium of 10, ionized calcium normal at 5.2, albumin of 4.2, normal kidney function, PTH elevated at 93.4, 24 hour urine calcium showed 24 hour urine calcium of 203 mg per 24 hours, fractional excretion of calcium 0.76748 Physical exam General: sitting comfortably in no acute distress HEENT: normocephalic/atraumatic, Neck: supple, symmetrical, no thyromegaly , Cardiac: normal heart sounds Pulm: normal breath sounds B/L, no added breath sounds Abd: not distended, no tenderness Extremities: no edema, no signs of myxedema Laboratory Tests 11/11/23 09:35 Calcium 10.2 Albumin 4.3 Laboratory Tests 11/11/23 07/28/24 07/29/24 09:35 16:00 14:22 Creatinine 0.91 Estimated GFR > 60 Calcium 10.2 10.0 Ionized Calcium 5.2 Phosphorus 3.3 Magnesium 2.1 Albumin 4.3 4.2 25-OH Vitamin D Total 31.0 TSH 1.47 Free T4 0.90 Total T3 110 Thyroid Stim Immunoglob <89 PTH Intact 93.4 H Ur 24 Hour Volume 2024 Ur Creatinine mg/dL 79.37 Ur Creatinine 24 Hour 1.6 Ur Calcium 24 Hr 203 Calcium/Creat 24 Hr 125 Laboratory Tests 07/29/24 14:22 Thyroid Peroxidase Ab <1 TSH Receptor Ab <1.00 ultrasound thyroid 08/08/2024 HISTORY: E05.90 - Thyrotoxicosis, unspecified without thyrotoxic crisis 08/08/24 or storm TECHNIQUE: Real-time grayscale ultrasound imaging was performed and images were reviewed. COMPARISON: There are no prior studies for comparison. FINDINGS: SIZE: The right thyroid lobe measures 5.8 x 2.1 x 1.5 cm. The left thyroid lobe measures 4.5 x 1.1 x 1.5 cm. The isthmus measures 3 mm. FLOW: Flow to the gland is mildly increased. ECHOGENICITY: The echotexture of the gland is homogeneous. NODULES: There are multiple subcentimeter nodules noted as described below: Nodule #: 1 Location: Midportion of the right thyroid lobe measuring 6 x 3 x 4 mm. Shape: Wider than tall (0 points) Margins: Ill-defined (0 points) Echotexture: Hypoechoic (2 points) Composition: Solid (2 points) Calcifications: None (0 points) Total points: 4 TIRADS: TR4: Moderately suspicious. Nodule #: 2 Location: Midportion of the right thyroid lobe measuring 4 x 3 x 3 mm. Shape: Round (0 points) Margins: Ill-defined (0 points) Echotexture: Isoechoic (1 point) Composition: Solid (2 points) Calcifications: None (0 points) Total points: 3 TIRADS: TR3: Mildly suspicious. Nodule #: 3 Location: Lower pole of the right thyroid lobe measuring 9 x 5 x 6 mm. Shape: Wider than tall (0 points) Margins: Ill-defined (0 points) Echotexture: Hypoechoic (2 points) Composition: Mostly solid (2 points) Calcifications: None (0 points) Total points: 4 TIRADS: TR4: Moderately suspicious. Nodule #: 4 Location: Isthmus, measuring 4 x 2 x 6 mm. Shape: Wider than tall (0 points) Margins: Smooth (0 points) Echotexture: Hypoechoic (2 points) Composition: Indeterminate (2 points) Calcifications: None (0 points) Total points: 4 TIRADS: TR4: Moderately suspicious. US/US thyroid IMPRESSION: Multiple subcentimeter thyroid nodules as described. 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 she is on methimazole 5 mg daily, most recent blood work done in July 2024 showed undetectable TSI, TSH receptor antibodies. Her records from [facility] do not show she I have or had an uptake and scan, and she does not think she did either. We will do a thyroid uptake and scan to confirm diagnosis of toxic multinodular goiter. Ultrasound thyroid done in July 2024 does show bilateral subcentimeter nodules, none of these meet criteria for FNA or follow up. Most recent TSH from July 2024 within normal range and normal free T4 and total T3. Plan: -Continue taking methimazole 5 mg daily in the morning. - ordered thyroid uptake and scan (2) Hyperparathyroidism: Code(s): E21.3 - Hyperparathyroidism, unspecified Category: Medical Plan: Patient describes she has a history of hyperparathyroidism, as mentioned in her PCP's note. Most recent vitamin-D level 07/29/2024 of 31, other labs obtained 07/29/2024 showed calcium of 10, ionized calcium normal at 5.2, albumin of 4.2, normal kidney function, PTH elevated at 93.4, 24 hour urine calcium showed 24 hour urine calcium of 203 mg per 24 hours, fractional excretion of calcium 0.03844 She does not have any history of kidney stones, fractures or osteoporosis. However [facility] records mention she had an ultrasound in 2019 which shows bilateral nephrolithiasis, patient does not think she ever had an ultrasound of her kidneys. We will obtain a ultrasound of her kidneys to confirm this. She does have a family history of kidney stones and hypercalcemia in sister, we will also have to think if she has possibly FHH. Her fraction excretion of calcium is 0.015, given this is greater than 0.01, likely this is normocalcemic hyperparathyroidism but can not exactly rule out familial hypocalciuric hypercalcemia. However given her age is less than 50, plus possible history of kidney stones she qualifies for surgery. I will obtain a parathyroid scan. Plan: -do parathyroid SPECT CT -ordered ultrasound of the kidneys -continue vitamin-D 1000 units daily -incorporate calcium in diet to account for 1000 mg daily starting now so that her urine calcium levels are reflective of a good calcium intake -follow up in 6weeks to discuss results Plan See above Orders: Orders NM parathyroid SPECT w CT Today E21.3 - Hyperparathyroidism, unspecified US renal BI Today E21.3 - Hyperparathyroidism, unspecified NM thyroid w uptake Today E05.90 - Thyrotoxicosis, unspecified without thyrotoxic crisis or storm Patient Instructions: Do ultrasound of kidneys Do parathyroid scan Do thyroid scan Follow up in 6 weeks to discuss results Continue methimazole 5 mg daily, but make sure you ask how long before the thyroid scan you have to hold it Coding Level of Care Code Est Pt Level 3 (64676) Diagnoses Hyperthyroidism E05.90 Hyperparathyroidism E21.3
--- OUTSIDE RECORDS SUMMARY | 2024-08-15 15:28 | XMS_ITS | Data Portability ---
Author Organization [facility], Allergy Address [address] [address] Care Team Providers Care Torch Straightener And Heater Name Role Phone ZENA VALENTINO Primary Care Provider [phone] Assessment Encounter Date Assessment Date Assessment LastModified [...] this time. Offered to refer her to [facility] for an additional opinion if she [...] Organization Details Recorded Time Mass of neck 540730981 Active 2018 Localized swelling, mass and lump, neck; Location: right Not e: Date Diagnosed : 12/28/2018 3:00 PM (R22.1) Not Available [facility] 4 02:21:22 Neck swelling 184201723 Active 2018 Localized swelling, mass and lump, neck; Location: right Not e: Date Diagnosed : 12/28/2018 3:00 PM (R22.1) Not Available [facility] 4 02:21:22 Respirato ry finding 623449210 Active 2019 Feeling of foreign body in throat; Note: Date Diagnosed : 09/22/2019 4:32 PM (R09.89) Not Available [facility] 4 02:21:59 Cardiovas cular finding 253067512 Active 2019 Feeling of foreign body in throat; Note: Date Diagnosed : 09/22/2019 4:32 PM (R09.89) Not Available [facility] 4 02:21:59 Laryngeal spasm 207861002 Active 2019 Laryngeal spasm; Note: Date Diagnosed : 02/24/2020 3:00 PM (J38.5) Not Available [facility] 4 02:21:41 Pain of right temporoma ndibular joint 21616513914 561799 Active 2022 Arthralgi a of right temporoma ndibular joint; Note: Date Diagnosed : 04/21/2023 4:10 PM (M26.621) Not Available [facility] 4 02:21:52 Somatofor m disorder 61526899 Active 2018 Psychogen ic dysphagia , including 'globus hystericu s'; Note: Date Diagnosed : 12/28/2018 2:44 PM (F45.8) Not Available [facility] 4 02:21:24 Feeling of lump in throat 268817419 Active 2024 NATALIYA ZAMORA PA-C [address] [place] [address], [place], [address] , [facility] - [facility] 5 13:07:28 Impacted cerumen in right ear 54273046030 52765 Active 2024 NATALIYA ZAMORA PA-C [address] [facility],[place] [address], [place], [address] , [facility] - [facility] 13:08:59 Problem Notes None recorded. Procedures Surgical History Date Name Laterality Status Provider Name and Address Organization Details Recorded Time Cerumen removal without microscope right completed NATALIYA ZAMORA PA-C [address] [facility] [address], [place], [address], [facility] 06/30/2024 12:58:58 Imaging Results None recorded. [...] 4 mg tablet active Medicati on ID: [id number] B rand Name: ondanset alpesh HCl Send Method: E-Prescr ibed Sub s Allowed: subs OK Medic ationGen ericName : ondanset alpesh HCl Not Available Not Available Not Available famotidin e 40 mg tablet active Medicati on ID: [id number] B rand Name: famotidi ne Send Method: [...] mg tablet 09/10 completed Medicati on ID: [id number] B rand Name: ibuprofe n Send Method: [...] elayed release 09/10 completed Medicati on ID: [id number] D uration Value: 30 Brand Name: omeprazo [...] 50 mg tablet active Medicati on ID: [id number] B rand Name: sertrali ne Send Method: E-Prescr ibed Sub s Allowed: subs OK Medic ationGen ericName : sertrali ne Not Available Not Available Not Available Vitamin D3 50 mcg (2,000 unit) tablet TAKE 1 TABLET BY MOUTH EVERY DAY FOR 90 DAYS active Not Available Not Available No t Available Vienva 0.1 mg-20 mcg tablet active Medicati on ID: [id number] B rand Name: Viboazva S end Method: [...] SNOMED-CT Code Diagnosis ICD10 Code Diagnosis Note [id number] ISMA ZHANG MD [facility] [address] [address] 06/30/2024 10:18:42 06/30/2024 11:25:41 Pain of right temporomandibular joint [id number] 5346938 M26.621 Feeling of lump in throat 891798494 R09.89 Impacted c erumen in right ear [id number] 491699 H61.21 Health Concerns Section Related Observation LastModified by Organization Detai ls LastModified Time None Recorded Concern Status LastModified by Organization Details LastModified Time None Recorded Advance Directives Directive None Recorded Payers Encounter Date Sequence Insurance Name Policy Number Policy Guillen Covered Member ID Guillen Member ID Guarantor Name 06/30/2024 1 [facility] NET PLAN (MEDICAID HMO) [id number] Stephani Goins [id number] Stephani Goins Notes Date Note Type [...] endocrinology. No smoking history. ISMA ZHANG MD [address] [place] [address], [place], [address], [facility] - [facility] 06/30/2024 17:26:26 OBGyn Episode No OBEpisode recorded.
--- OUTSIDE RECORDS SUMMARY | 2024-08-15 15:29 | XMS_ITS | Clinical Summary ---
Author Organization [facility] Address [address] [place] [address] Care Team Providers Care Middleware Solutions Architect Name Role Phone Mandi Lu RD Primary Care Provider [phone] Source Comments PLEASE NOTE, if this patient [...] activity Exercise No Mandi Lu RD Insurance [facility] [employer] [facility] Member Subscriber Plan / Payer (Ef fective 2013-Present) Name:Stephani Goins Relation to Subscriber:Self Name:Stephani Goins Payer ID:[id number] Group ID:[id number] Type:Medicaid Address: [address] [address] [place] [address] Care Teams Middleware Solutions Architect Relationship Specialty Start Date End Date Mandi Lu [address] [place] [address] PCP - General Dentist Machine Marker 02/15/13
--- OUTSIDE RECORDS SUMMARY | 2024-08-15 15:29 | XMS_ITS | Clinical Summary ---
Author Organization [facility] Address [address] [place] [address] Phone Care Team Providers Care Grain Miller Helper Name Role Phone Juany Power MD Primary Care Provider [phone] Encounters Date Type Department Care Team Description 08/01/2024 10:00 AM EDT - 08/01/2024 11:59 PM EDT [facility] [address] [address] Encounter for screening mammogram for breast cancer Discharge Disposition: Home or Self Care from Last 3 Months Surgical History Surgery Date Site/Laterality Comments SECTION PROCEDURE: [place] DELIVERY ONLY; COMMENT: X 3 Medical History [...] = 0.6 oz pur e alcohol) Comments No Sex and Gender Information Value Date Recorded Sex Assigned at Not on file Legal Sex Female 2:56 PM EST Gender Identity Not on file Sexual Orientation Not on file Obstetrics History Para Term AB IAB SAB Ectopic Multiple Livin g Live Births 3 Last Filed Vital Signs Vital Sign Reading Time Taken Comments Blood Pressure - - Pulse - - Temperature - - Respiratory Rate - - Oxygen Saturation - - Inhaled Oxygen Concentration - - Weight 88 kg (194 lb) 08/01/2024 10:43 AM EDT Height 165.1 cm (5' 5 ) 08/01/2024 10:43 AM EDT Body Mass Index 32.28 08/01/2024 10:43 AM EDT Plan of Treatment Health Maintenance Due Date Last Done Comments [...] Screening 04/16/2022 COVID-19 Vaccine ( season) 2024 06/24/2021, 07/11/2020, 06/13/2020 Breast Cancer Screening 08/01/2026 08/02/19, 08/22/2022, 03/22/2021, Additional history exists DTaP,Tdap,and Td Vaccines (3 - Td or Tdap) 06/05/2027 06/05/2017, 01/12/2007 Influenza Vaccine Completed 03/01/2024, , 03/13/2022, Additional history exists HIB Vaccines Aged Out No longer eligi [...] Procedure Name Priority Date/Time Associated Diagnosis Comments MG MAMMO DIGITAL SCREENING W LAMONT BILAT Routine 08/01/2024 1:20 PM EDT Encounter for screening mammogram for breast cancer from Last 3 Months Results * MG Mammo Digital Screening w Lamont bilat (08/01/2024 1:20 PM EDT) Anatomical Region Laterality Modality Breast Bilateral Mammography 08/01/2024 12:4 2 PM EDT Impressions 08/01/2024 12:47 PM EDT No mammographic evidence of malignancy. ?? No suspicious interval change. A negative mammogram in the presence of a clinically suspicious palpable abnormality does not preclude the possibility of malignancy or alter the indications for biopsy. ASSESSMENT: ?? BI-RADS 1: NEGATIVE RECOMMENDATION(S): 1: Routine screening mammogram BILATERAL in 1 year. [facility] [address], [address] -------- FINAL REPORT -------- Dictated By: Kadeem Valdez Dictated Date: 08/01/2024 12:42 ET Assigned Physician: Kadeem Valdez Reviewed and Electronically Signed By: Kadeem Valdez Signed Date: 08/01/2024 12:47 ET Workstation ID: [id number] Transcribed By: Self Edit Transcribed Date: 08/01/2024 12:42 ET Narrative 08/01/2024 12:47 PM EDT EXAM: ??SCREENING MAMMOGRAPHY, BILATERAL HISTORY: ??SCREENING. ??Father with history of breast cancer. COMPARISON: ??08/20/2022, 03/22/2021, 01/03/2020 TECHNIQUE: Synthesized CC and MLO projections of each breast. ??Tomosynthesis of each breast in the CC and MLO projections. ADDITIONAL IMAGING: None Computer-aided detection was employed with the iCAD ??ProFound AI 3-D. TISSUE DENSITY: There are scattered areas of fibroglandular density. (BI-RADS category B) FINDINGS: RIGHT BREAST: No suspicious mass. No suspicious calcification. No distortion. ?? No additional suspicious right breast findings LEFT BREAST: No suspicious mass. No suspicious calcification. No distortion. ?? No additional suspicious left breast findings Procedure Note Kadeem Valdez MD - 08/01/2024 EXAM: SCREENING MAMMOGRAPHY, BILATERAL HISTORY: SCREENING. Father with history of breast cancer. COMPARISON: 08/20/2022, 03/22/2021, 01/03/2020 TECHNIQUE: Synthesized CC and MLO projections of each breast.Tomosynthesis of each breast in the CC and MLO projections. ADDITIONAL IMAGING: None Computer-aided detection was employed with the iCAD ProFound AI 3-D. TISSUE DENSITY: There are scattered areas of fibroglandular density.(BI-RADS category B) FINDINGS: RIGHT BREAST: No suspicious mass. No suspicious calcification. No distortion. Noadditional suspicious right breast findings LEFT BREAST: No suspicious mass. No suspicious calcification. No distortion. Noadditional suspicious left breast findings IMPRESSION: No mammographic evidence of malignancy. No suspicious interval change. A negative mammogram in the presence of a clinically suspicious palpableabnormality does not preclude the possibility of malignancy or alter theindications for biopsy. ASSESSMENT: BI-RADS 1: NEGATIVE RECOMMENDATION(S): 1: Routine screening mammogram BILATERAL in 1 year. [facility] [address], [address] -------- FINAL REPORT -------- Dictated By: Kadeem Valdez Dictated Date: 08/01/2024 12:42 ET Assigned Physician: Kadeem Valdez Reviewed and Electronically Signed By: Kadeem Valdez Signed Date: 08/01/2024 12:47 ET Workstation ID: [id number] Transcribed By: Self Edit Transcribed Date: 08/01/2024 12:42 ET us Self Referral Sppl IMG BI PROCEDURES Final Resul t from Last [address] [place] [address] Care Teams Grain Miller Helper Relationship Specialty Start Date End Date Juany Power MD [address] [place] [id number] PCP - General Internal Medicine 08/01/24
== END 2024-08-15 14:05 | disposition home or self-care (01) ==
LOC: HO.ENCR 13:44
PROVIDERS: PCP Family Medicine; Visit Provider Student in an Organized Health Care Education/Training Program
DX: E05.90 Thyrotoxicosis, unspecified without thyrotoxic crisis or storm (principal); E21.3 Hyperparathyroidism, unspecified
CPT/HCPCS: 99213

== ENCOUNTER → 2024-08-15 13:43 | Outpatient (BNVA) | payer OTHER, SELFPAY | PROVIDERS: PCP Family Medicine; Visit Provider Student in an Organized Health Care Education/Training Program | DX: E21.3 Hyperparathyroidism, unspecified (principal); E05.90 Thyrotoxicosis, unspecified without thyrotoxic crisis or storm | CPT/HCPCS: 99212 ==

== ENCOUNTER → 2024-09-15 09:14 | Outpatient (REF) | payer OTHER, SELFPAY ==
--- NOTE | ~2024-09-15 | NM_ITS ---
EXAMINATION: NM THYROID UPTAKE AND SCAN CLINICAL INFORMATION: Thyrotoxicosis. Methimazole x1 week. TSH 1.47 miu/ml, total T3 110 ng/dl COMPARISON: None available. TECHNIQUE: Following the oral administration of 300 microcuries of I-123 sodium iodide, thyroid uptake was performed and expressed as a percentage of the administrated dose after 4 and 24 hours. Gamma scintillation camera images of the thyroid in the anterior and right and left anterior oblique views were obtained using a pinhole collimator following the administration of 10 mCi Tc-99m pertechnetate. FINDINGS: The uptake is 28.7% at 4 hours and 49.76% at 24 hours. On technetium thyroid scan there is symmetric bilateral thyroid lobe activity. No focal cold defect or hot nodule seen. The visualized upper chest appears unremarkable. NM/NM thyroid w uptake IMPRESSION: Normal thyroid scan. Abnormal radioactive iodine uptake of 20% at 4 hours and 49.76% at 25. Findings consistent with hyperthyroidism. Electronically signed by: Estevan Zamora MD 09/16/2024 12:36 PM EDT
--- OUTSIDE RECORDS SUMMARY | 2024-09-15 09:58 | XMS_ITS | Clinical Summary ---
Author Organization [facility] Address [address] [place] [address] Care Team Providers Care Airplane Fueler Name Role Phone Mandi Lu RD Primary Care Provider [phone] Source Comments PLEASE NOTE, if this patient [...] activity Exercise No Mandi Lu RD [facility] [employer] [facility] Member Subscriber Plan / Payer (Ef fective 2013-Present) Name:Stephani Goins Relation to Subscriber:Self Name:Stephani Goins Payer ID:[id number] Group ID:[id number] Type:Medicaid Address: [address] [address] [place] [address] Care Teams Airplane Fueler Relationship Specialty Start Date End Date Mandi Lu RD [address] [place] [address] PCP - General Dentist Hot Water Heater Installer 02/15/13
--- OUTSIDE RECORDS SUMMARY | 2024-09-15 09:58 | XMS_ITS | Clinical Summary ---
Author Organization [facility] Address [address] [place] [address] Phone Care Team Providers Care Certified Personal Finance Counselor Name Role Phone Juany Power MD Primary Care Provider [phone] Encounters Date Type Department Care Team Description 08/01/2024 10:00 AM EDT - 08/01/2024 11:59 PM EDT [facility] at [address] [address] Encounter for screening mammogram for breast cancer Discharge Disposition: Home or Self Care from Last 3 Months Surgical History Surgery Date Site/Laterality Comments SECTION PROCEDURE: [place] DELIVERY ONLY; COMMENT: X 3 Medical History [...] age to complete this topic Meningococcal B Vaccine Aged Out No l onger eligible based on patient's age to complete [...] year. [facility] at [address], [address] -------- FINAL REPORT -------- Dictated By: Kadeem Valdez Dictated Date: 08/01/2024 12:42 ET Assigned Physician: Kadeem Valdez Reviewed and Electronically Signed By: Kadeem Valdez Signed Date: 08/01/2024 12:47 ET Workstation ID: [id number] Transcribed By: Self Edit Transcribed Date: 08/01/2024 [...] year. [facility]amm[facility] location[facility] [address], [address] -------- FINAL REPORT -------- Dictated By: Kadeem Valdez Dictated Date: 08/01/2024 12:42 ET Assigned Physician: Kadeem Valdez Reviewed and Electronically Signed By: Kadeem Valdez Signed Date: 08/01/2024 12:47 ET Workstation ID: [id number] Transcribed By: Self Edit Transcribed Date: 08/01/2024 12:42 ET us Self Referral Sppl IMG BI PROCEDURES Final Resul t from Last 3 Months Insurance Care Teams Certified Personal Finance Counselor Relationship Specialty Start Date End Date Juany Power MD [address] [place] [id number] PCP - General Internal Medicine 08/01/24
== END ==
LOC: HO.NUCMED 09:14
PROVIDERS: PCP Family Medicine; Visit Provider Student in an Organized Health Care Education/Training Program
DX: E05.90 Thyrotoxicosis, unspecified without thyrotoxic crisis or storm (principal)
CPT/HCPCS: 78014; A9512; A9516

== ENCOUNTER → 2024-09-15 09:15 | Outpatient (BNV) | payer OTHER, SELFPAY | PROVIDERS: PCP Family Medicine; Visit Provider Radiology Diagnostic Radiology | DX: E05.90 Thyrotoxicosis, unspecified without thyrotoxic crisis or storm (principal) | CPT/HCPCS: 78014 ==

== ENCOUNTER → 2024-09-19 11:37 | Outpatient (BNV) | payer OTHER, SELFPAY | PROVIDERS: PCP Family Medicine; Visit Provider Radiology Diagnostic Radiology | DX: E21.3 Hyperparathyroidism, unspecified (principal) | CPT/HCPCS: 78070 ==

== ENCOUNTER → 2024-09-19 | Outpatient (REF) | payer OTHER, SELFPAY ==
--- NOTE | ~2024-09-19 | NM_ITS ---
EXAMINATION: NM PARATHYROID HISTORY: E21.3 - Hyperparathyroidism, unspecified. TECHNIQUE: A parathyroid imaging study was performed following the intravenous administration of 30 mCi technetium 99m-sestamibi. Planar images were obtained at 20 minutes and 2 hours. The patient could not tolerate SPECT imaging due to anxiety and claustrophobia. COMPARISON: Correlation is made with a thyroid ultrasound dated 08/08/2024 and a thyroid uptake and scan dated 09/15/2024. FINDINGS: Initial images demonstrate a homogeneous distribution of activity throughout both thyroid lobes. No foci of increased activity or cold defects are identified. Delayed images demonstrate washout of activity from the thyroid gland. There are no foci of residual abnormal increased uptake to suggest a parathyroid adenoma. NM/NM parathyroid IMPRESSION: No scintigraphic evidence of a parathyroid adenoma. Electronically signed by: David Shaikh MD 09/19/2024 03:47 PM EDT
--- OUTSIDE RECORDS SUMMARY | 2024-11-14 12:45 | XMS_ITS | Clinical Summary ---
Author Organization [facility] Address [address] [place] [address] Phone Care Team Providers Care Benzene Operator Name Role Phone uJany Power MD Primary Care Provider [phone] Surgical History Surgery Date Site/Laterality Comments SECTION PROCEDURE: [place] DELIVERY ONLY; COMMENT: X 3 Medical History [...] for breast cancer from Last 3 Months or Most Recently Relevant to Health Maintenance Results * MG Mammo Digital Screening w Lamont bilat (08/01/2024 1:20 PM EDT) Anatomical Region Laterality Modality Breast Bilateral Mammography 08/01/2024 12:4 2 PM EDT Impressions 08/01/2024 12:47 PM EDT No mammographic evidence of malignancy. No suspicious interval change. A negative mammogram in the presence of a clinically suspicious palpable abnormality does not preclude the possibility of malignancy or alter the indications for biopsy. ASSESSMENT: BI-RADS 1: NEGATIVE RECOMMENDATION(S): 1: Routine screening mammogram BILATERAL in 1 year. [facility] [address], [address] -------- FINAL REPORT -------- Dictated By: Kadeem Valdez Dictated Date: 08/01/2024 12:42 ET Assigned Physician: Kadeem Valdez Reviewed and Electronically Signed By: Kadeem Valdez Signed Date: 08/01/2024 12:47 ET Workstation ID: [id number] Transcribed By: Self Edit Transcribed Date: 08/01/2024 12:42 ET Narrative 08/01/2024 12:47 PM EDT EXAM: SCREENING MAMMOGRAPHY, BILATERAL HISTORY: SCREENING. Father with history of breast cancer. COMPARISON: 08/20/2022, 03/22/2021, 01/03/2020 TECHNIQUE: Synthesized CC and MLO projections of each breast. Tomosynthesis of each breast in the CC and MLO projections. ADDITIONAL IMAGING: None Computer-aided detection was employed with the [employer] ProFound AI 3-D. TISSUE DENSITY: There are scattered areas of fibroglandular density. (BI-RADS category B) FINDINGS: RIGHT BREAST: No suspicious mass. No suspicious calcification. No distortion. No additional suspicious right breast findings LEFT BREAST: No suspicious mass. No suspicious calcification. No distortion. No additional suspicious left breast findings Procedure [...] year. [facility] [address], [address] -------- FINAL REPORT -------- Dictated By: Kadeem Valdez Dictated Date: 08/01/2024 12:42 ET Assigned Physician: Kadeem Valdez Reviewed and Electronically Signed By: Kadeem Valdez Signed Date: 08/01/2024 12:47 ET Workstation ID: [id number] Transcribed By: Self Edit Transcribed Date: 08/01/2024 12:42 ET us Self Referral Sppl IMG BI PROCEDURES Final Resul t from Last 3 Months or Most Recently Relevant to Health Maintenance Insurance [facility] PLAN Care Teams Benzene Operator Relationship Specialty Start Date End Date Juany Power MD [address] [place] [id number] PCP - General Internal Medicine 08/01/24
--- OUTSIDE RECORDS SUMMARY | 2024-11-14 12:45 | XMS_ITS | Data Portability ---
Author Organization [place] - [facility], Allergy Address [address] [facility] [address] [place] [address] Care Team Providers Care Assisted Living Executive Director Name Role Phone CHICHO ZENA Primary Care Provider Assessment Encounter Date Assessment [...] this time. Offered to refer her to [facility] for an additional opinion if she [...] Organization Details Recorded Time Mass of neck 809189195 Active 2018 Localized swelling, mass and lump, neck; Location: right Not e: Date Diagnosed : 12/28/2018 3:00 PM (R22.1) Not Available [facility] 4 02:21:22 Neck swelling 864890224 Active 2018 Localized swelling, mass and lump, neck; Location: right Not e: Date Diagnosed : 12/28/2018 3:00 PM (R22.1) Not Available [facility] 4 02:21:22 Respirato ry finding 332352365 Active 2019 Feeling of foreign body in throat; Note: Date Diagnosed : 09/22/2019 4:32 PM (R09.89) Not Available [facility] 4 02:21:59 Cardiovas cular finding 407512332 Active 2019 Feeling of foreign body in throat; Note: Date Diagnosed : 09/22/2019 4:32 PM (R09.89) Not Available [facility] 4 02:21:59 Laryngeal spasm 538933275 Active 2019 Laryngeal spasm; Note: Date Diagnosed : 02/24/2020 3:00 PM (J38.5) Not Available [facility] 4 02:21:41 Pain of right temporoma ndibular joint [id number] 105502 Active 2022 Arthralgi a of right temporoma ndibular joint; Note: Date Diagnosed : 04/21/2023 4:10 PM (M26.621) Not Available [facility] 4 02:21:52 Somatofor m disorder 88738944 Active 2018 Psychogen ic dysphagia , including 'globus hystericu s'; Note: Date Diagnosed : 12/28/2018 2:44 PM (F45.8) Not Available [facility] 4 02:21:24 Feeling of lump in throat 114671049 Active 2024 NATALIYA ZAMORA PA-C [address] [place] [address], [facility] [place], [address] , [facility] - [facility] 5 13:07:28 Impacted cerumen in right ear [id number] 22969 Active 2024 NATALIYA ZAMORA PA-C [address] [facility],[place] [address], [place], [address] , [place] - [facility] 13:08:59 Problem Notes None recorded. Procedures Surgical History Date Name Laterality Status Provider Name and Address Organization Details Recorded Time Cerumen removal without microscope right completed NATALIYA ZAMORA PA-C [address] [facility],[place] [address], [place], [address], [place] - [facility] 06/30/2024 12:58:58 Imaging Results None recorded. Procedure [...] 4 mg tablet active Medicati on ID: [id number] B rand Name: ondanset alpesh HCl Send Method: E-Prescr ibed Sub s Allowed: subs OK Medic ationGen ericName : ondanset alpesh HCl Not Available Not Available Not Available famotidin e 40 mg tablet active Medicati on ID: [id number] B rand Name: famotidi ne Send Method: [...] mg tablet 09/10 completed Medicati on ID: [id number] B rand Name: ibuprofe n Send Method: [...] elayed release 09/10 completed Medicati on ID: [id number] D uration Value: 30 Brand Name: omeprazo [...] 50 mg tablet active Medicati on ID: [id number] B rand Name: sertrali ne Send Method: E-Prescr ibed Sub s Allowed: subs OK Medic ationGen ericName : sertrali ne Not Available Not Available Not Available Vitamin D3 50 mcg (2,000 unit) tablet TAKE 1 TABLET BY MOUTH EVERY DAY FOR 90 DAYS active Not Available Not Available No t Available Vienva 0.1 mg-20 mcg tablet active Medicati on ID: [id number] B rand Name: Vienva S end Method: [...] SNOMED-CT Code Diagnosis ICD10 Code Diagnosis Note [id number] NATALIYA ZAMORA PA-C [facility] [address] [address] 06/30/2024 10:18:42 06/30/2024 11:25:41 Pain of right temporomandibular joint [id number] M26.621 Feeling of lump in throat 459770253 R09.89 Impacted c erumen in right ear [id number] 361035 H61.21 Health Concerns Section Related Observation LastModified by Organization Detai ls LastModified Time None Recorded Concern Status LastModified by Organization Details LastModified Time None Recorded Advance Directives Directive None Recorded Payers Insurance Date Sequence Insurance Name Policy Number Policy Guillen Covered Member ID Guillen Member ID Guarantor Name 06/30/2024 1 [facility] (MEDICAID HMO) [id number] Stephani Goins [id number] Stephani Goins 06/29/2024 1 [facility] (MEDICARE REPLACEMENT/ ADVANTAGE - HMO) Stephani Goins [id number] Stephani Goins Notes Date Note Type [...] endocrinology. No smoking history. ISMA ZHANG MD [address] [place] [address], [phone], [facility] - [facility] 06/30/2024 17:26:26 OBGyn Episode No OBEpisode recorded.
--- OUTSIDE RECORDS SUMMARY | 2024-11-14 12:46 | XMS_ITS ---
Author Name [facility]ISP Organization Unknown Results Test Name/Text Value Interpretation Date Range Source TSH 1.79 uIU/mL Normal 04/15/2024 0.55 - 4.78 [facility] BUN 14.0 mg/dL Normal 04/15/2024 9 - 23 [facility] GLUCOSE 83.0 mg/dL Normal 04/15/2024 74 - 106 [facility] CHLORIDE 107.0 mmol/L Normal 04/15/2024 98 - 107 [facility] SODIUM 142.0 mmol/L Normal 04/15/2024 136 - 145 [facility] CREATININE 1.02 mg/dL Normal 04/15/2024 0.55 - 1.02 [facility] CO2 28.0 mmol/L Normal 04/15/2024 20 - 31 [facility] H POTASSIUM SERUM 3.8 mmol/L Normal 04/15/2024 3.5 - 5.1 CT [facility] PATIENT FASTING? UNKNOWN Normal 04/15/2024 [facility] TROPONIN I HIGH SENSITIVE < 2.50 Below low normal 04/15/2024 2.5 - 34 [facility] MPV 9.0 fL Normal 04/15/2024 8 - 12 [facility] MONOCYTES 8.0 % Normal 04/15/2024 0 - 12 [facility] BASOPHILS 1.0 % Normal 04/15/2024 0 - 2 [facility] NUCLEATED RBC 0.0 % Normal 04/15/2024 0 - 0.2 [facility] EOSINOPHILS 2.0 % Normal 04/15/2024 0 - 6 [facility] H RBC 4.62 M/uL Normal 04/15/2024 4 - 5.4 [facility] ABSOLUTE IMMATURE GRANULOCYTES 0.0 K/uL Normal 04/15/2024 0 - 0.3 [facility] PLATELET COUNT 319.0 K/uL Normal 04/15/2024 150 - 480 [facility] HGB 13.5 g/dL Normal 04/15/2024 12.1 - 15.7 [facility] MCH 29.0 PG Normal 04/15/2024 27 - 34 [facility] ABSOLUTE LYMPHS 3.0 K/uL Normal 04/15/2024 1.5 - 4.9 [facility] ABSOLUTE NUCLEATED RBC 0.0 K/uL Normal 04/15/2024 0 - 0. 012 [facility] HCT 40.3 % Normal 04/15/2024 36 - 46 [facility] MCHC 33.5 g/dL Normal 04/15/2024 31 - 36 [facility] ABSOLUTE BASO 0.1 K/uL Normal 04/15/2024 0 - 0.2 [facility] GRANULOCYTES 55.0 % Normal 04/15/2024 23 - 78 [facility] ABSOLUTE GRANULOCYTES 4.9 K/uL Normal 04/15/2024 2.2 - 7 .3 [facility] MCV 87.0 fL Normal 04/15/2024 83 - 102 [facility] LYMPHS 34.0 % Normal 04/15/2024 16 - 50 [facility] ABSOLUTE MONOS 0.7 K/uL Normal 04/15/2024 0.2 - 1.5 [facility] RDW 11.9 % Normal 04/15/2024 11.1 - 13.3 [facility] WBC 8.8 K/uL Normal 04/15/2024 3.7 - 10.3 [facility] IMMATURE GRANULOCYTES 1.0 % Above high normal 04/15/2024 0 - 0.45 [facility] ABSOLUTE EOS 0.1 K/uL Normal 04/15/2024 0 - 0.7 [facility] POTASSIUM SERUM 3.7 mmol/L Normal 07/13/2023 3.5 - 5.1 CT [facility] SODIUM 141.0 mmol/L Normal 07/13/2023 136 - 145 [facility] BUN 11.0 mg/dL Normal 07/13/2023 7 - 18 [facility] CHLORIDE 108.0 mmol/L Above high normal 07/13/2023 98 - 107 [facility] GLUCOSE 111.0 mg/dL Above high normal 07/13/2023 74 - 100 [facility] CREATININE 1.04 mg/dL Normal 07/13/2023 0.55 - 1.3 [facility] CO2 25.0 mmol/L Normal 07/13/2023 21 - 32 [facility] PATIENT FASTING? UNKNOWN Normal 07/13/2023 CT [facility] GFRE 60.0 Normal 07/13/2023 60 - [facility] ABSOLUTE LYMPHS 1.1 K/uL Below low normal 07/13/2023 1.5 - 4.9 [facility] ABSOLUTE GRANULOCYTES 6.8 K/uL Normal 07/13/2023 2.2 - 7 .3 [facility] RDW 11.9 % Normal 07/13/2023 11.1 - 13.3 [facility] WBC 8.9 K/uL Normal 07/13/2023 3.7 - 10.3 [facility] MCV 87.0 fL Normal 07/13/2023 83 - 102 [facility] PLATELET COUNT 267.0 K/uL Normal 07/13/2023 150 - 480 [facility] BASOPHILS 0.0 % Normal 07/13/2023 0 - 2 [facility] ABSOLUTE IMMATURE GRANULOCYTES 0.0 K/uL Normal 07/13/2023 0 - 0.3 [facility] HGB 13.7 g/dL Normal 07/13/2023 12.1 - 15.7 [facility] EOSINOPHILS 0.0 % Normal 07/13/2023 0 - 6 [facility] MCH 30.0 PG Normal 07/13/2023 27 - 34 [facility] ABSOLUTE BASO 0.0 K/uL Normal 07/13/2023 0 - 0.2 [facility] HCT 40.4 % Normal 07/13/2023 36 - 46 [facility] MONOCYTES 10.0 % Normal 07/13/2023 0 - 12 [facility] ABSOLUTE EOS 0.0 K/uL Normal 07/13/2023 0 - 0.7 [facility] MPV 9.0 fL Normal 07/13/2023 8 - 12 [facility] NUCLEATED RBC 0.0 % Normal 07/13/2023 0 - 0.2 [facility] IMMATURE GRANULOCYTES 0.0 % Normal 07/13/2023 0 - 0.4 5 [facility] RBC 4.64 M/uL Normal 07/13/2023 4 - 5.4 [facility] ABSOLUTE MONOS 0.9 K/uL Normal 07/13/2023 0.2 - 1.5 [facility] GRANULOCYTES 77.0 % Normal 07/13/2023 23 - 78 [facility] ABSOLUTE NUCLEATED RBC 0.0 K/uL Normal 07/13/2023 0 - 0. 012 [facility] MCHC 33.9 g/dL Normal 07/13/2023 31 - 36 [facility] LYMPHS 13.0 % Below low normal 07/13/2023 16 - 50 [facility] GFRE 75.0 Normal 05/29/2023 60 - [facility] CREATININE 0.86 mg/dL Normal 05/29/2023 0.55 - 1.3 [facility] CO2 25.0 mmol/L Normal 05/29/2023 21 - 32 [facility] H POTASSIUM SERUM 4.3 mmol/L Normal 05/29/2023 3.5 - 5.1 CT [facility] CHLORIDE 109.0 mmol/L Above high normal 05/29/2023 98 - 107 [facility] SODIUM 141.0 mmol/L Normal 05/29/2023 136 - 145 [facility] BUN 10.0 mg/dL Normal 05/29/2023 7 - 18 [facility] GLUCOSE 104.0 mg/dL Above high normal 05/29/2023 74 - [facility] Normal 05/29/2023 [facility] RDW 11.9 % Normal 05/29/2023 11.1 - 13.3 [facility] H ABSOLUTE BASO 0.1 K/uL Normal 05/29/2023 0 - 0.2 [facility] ABSOLUTE GRANULOCYTES 4.4 K/uL Normal 05/29/2023 2.2 - 7 .3 [facility] ABSOLUTE LYMPHS 2.0 K/uL Normal 05/29/2023 1.5 - 4.9 CTP R IMMATURE GRANULOCYTES 0.0 % Normal 05/29/2023 0 - 0.4 5 [facility] NUCLEATED RBC 0.0 % Normal 05/29/2023 0 - 0.2 [facility] ABSOLUTE EOS 0.1 K/uL Normal 05/29/2023 0 - 0.7 [facility] MONOCYTES 6.0 % Normal 05/29/2023 0 - 12 [facility] MCV 88.0 fL Normal 05/29/2023 83 - 102 [facility] WBC 7.0 K/uL Normal 05/29/2023 3.7 - 10.3 [facility] HCT 41.9 % Normal 05/29/2023 36 - 46 [facility] LYMPHS 29.0 % Normal 05/29/2023 16 - 50 [facility] PLATELET COUNT 342.0 K/uL Normal 05/29/2023 150 - 480 [facility] EOSINOPHILS 1.0 % Normal 05/29/2023 0 - 6 [facility] H HGB 14.1 g/dL Normal 05/29/2023 12.1 - 15.7 [facility] H MPV 10.0 fL Normal 05/29/2023 8 - 12 [facility] ABSOLUTE MONOS 0.4 K/uL Normal 05/29/2023 0.2 - 1.5 [facility] RBC 4.74 M/uL Normal 05/29/2023 4 - 5.4 [facility] ABSOLUTE IMMATURE GRANULOCYTES 0.0 K/uL Normal 05/29/2023 0 - [facility] 33.[facility] Normal 05/29/2023 31 - 36 [facility] BASOPHILS 1.0 % Normal 05/29/2023 0 - 2 [facility] GRANULOCYTES 63.0 % Normal 05/29/2023 23 - 78 [facility] ABSOLUTE NUCLEATED RBC 0.0 K/uL Normal 05/29/2023 0 - 0. 012 [facility] M[facility] 30.0 PG Normal 05/29/2023 27 - 34 [facility] Encounters Encounter Type Encounter Reason Primary Diagnosis Location Date Emergency RIGHT EAR PAIN RIGHT EAR PAIN [facility] 05/30/2024 Emergency LEFT ARM NUMBNESS, ABNORMAL EKG LEFT ARM NUMBNESS, ABNORMAL EKG [facility] 04/15/2024 Emergency HEADACHE HEADACHE [facility] 11/22/2023 Emergency MIGRAINE MIGRAINE [facility] 07/12/2023 Emergency HEAD[facility], [facility] Emergency MIGRAINE MIGRAINE [facility] 10/16/2022 Care Team Organization Name Specialty Phone Email Start Date End [facility] [employer] MICHAEL Primary Care 09/14/2024 [facility] Not [facility] Primary Care 05/31/2024 [facility] 06/07/2023 025 [facility] 10/16/2022 025 [facility] 10/16/2022 023
== END ==
LOC: HO.NUCMED
PROVIDERS: PCP Family Medicine; Visit Provider Student in an Organized Health Care Education/Training Program
DX: E21.3 Hyperparathyroidism, unspecified (principal); F40.240 Claustrophobia
CPT/HCPCS: 78070; A9500

== ENCOUNTER 2024-09-22 12:32 | Outpatient (REF) | payer OTHER, SELFPAY ==
--- NOTE | ~2024-09-22 | US_ITS ---
CLINICAL HISTORY: E21.3 - Hyperparathyroidism, unspecified US Renal Comparison: None Findings: Right kidney normal size and echotexture, 10.5 cm length. Left kidney normal size and echotexture, 11.4 cm length. No collecting system dilatation of either kidney. Normal color Doppler. IMPRESSION: 1. Normal kidneys. This document has been electronically signed by: Vinny Lopez MD on 09/23/2024 10:22:32
--- OUTSIDE RECORDS SUMMARY | 2024-09-22 13:42 | XMS_ITS | Clinical Summary ---
Author Organization [facility] Address [address] [place] [address] Care Team Providers Care Reception Manager Name Role Phone Mandi Lu RD Primary Care Provider [phone] Source Comments PLEASE NOTE, if this patient [...] activity Exercise No Mandi Lu RD [facility] [employer] [facility] Member Subscriber Plan / Payer (Ef fective 2013-Present) Name:Stephani Goins Relation to Subscriber:Self Name:Stephani Goins Payer ID:[id number] Group ID:[id number] Type:Medicaid Address: [address] [address] [place] [address] Care Teams Reception Manager Relationship Specialty Start Date End Date Mandi Lu [address] [place] [address] PCP - General Dentist Human Capital Analyst 02/15/13
--- OUTSIDE RECORDS SUMMARY | 2024-09-22 13:42 | XMS_ITS | Clinical Summary ---
Author Organization [facility] Address [address] [place] [address] Phone Care Team Providers Care Safety Attendant Name Role Phone Juany Power MD Primary Care Provider [phone] Encounters Date Type Department Care Team Description 08/01/2024 10:00 AM EDT - 08/01/2024 11:59 PM EDT [facility] [address] [address] Encounter for screening mammogram for breast cancer Discharge Disposition: Home or Self Care from Last 3 Months Surgical History Surgery Date Site/Laterality Comments SECTION PROCEDURE: [place] DELIVERY ONLY; COMMENT: X 3 Medical History [...] year. [facility] at [address], [address] -------- FINAL REPORT -------- Dictated By: Kadeem Valdez Dictated Date: 08/01/2024 12:42 ET Assigned Physician: Kadeem Valdez Reviewed and Electronically Signed By: Kadeem Valdez Signed Date: 08/01/2024 12:47 ET Workstation ID: [id number] Transcribed By: Self Edit Transcribed Date: 08/01/2024 [...] year. [facility]amm[facility] at [address], [address] -------- FINAL REPORT -------- Dictated By: Kadeem Valdez Dictated Date: 08/01/2024 12:42 ET Assigned Physician: Kadeem Valdez Reviewed and Electronically Signed By: Kadeem Valdez Signed Date: 08/01/2024 12:47 ET Workstation ID: [id number] Transcribed By: Self Edit Transcribed Date: 08/01/2024 12:42 ET us Self Referral Sppl IMG BI PROCEDURES Final Resul t from Last 3 Months Insurance Care Teams Safety Attendant Relationship Specialty Start Date End Date Juany Power MD [address] [place] [id number] PCP - General Internal Medicine 08/01/24
--- OUTSIDE RECORDS SUMMARY | 2024-09-22 13:42 | XMS_ITS | Data Portability ---
Author Organization [facility] Address [address] [address] Care Team Providers Care Envelope Sealer Name Role Phone ZENA VALENTINO Primary Care [...] this time. Offered to refer her to [facility] for an additional opinion if she would [...] Organization Details Recorded Time Mass of neck 510385825 Active 2018 Localized swelling, mass and lump, neck; Location: right Not e: Date Diagnosed : 12/28/2018 3:00 PM (R22.1) Not Available [facility] 4 02:21:22 Neck swelling 756679071 Active 2018 Localized swelling, mass and lump, neck; Location: right Not e: Date Diagnosed : 12/28/2018 3:00 PM (R22.1) Not Available [facility] 4 02:21:22 Respirato ry finding 680374389 Active 2019 Feeling of foreign body in throat; Note: Date Diagnosed : 09/22/2019 4:32 PM (R09.89) Not Available [facility] 4 02:21:59 Cardiovas cular finding 026096304 Active 2019 Feeling of foreign body in throat; Note: Date Diagnosed : 09/22/2019 4:32 PM (R09.89) Not Available [facility] 4 02:21:59 Laryngeal spasm 259899486 Active 2019 Laryngeal spasm; Note: Date Diagnosed : 02/24/2020 3:00 PM (J38.5) Not Available [facility] 4 02:21:41 Pain of right temporoma ndibular joint 24629717039 305717 Active 2022 Arthralgi a of right temporoma ndibular joint; Note: Date Diagnosed : 04/21/2023 4:10 PM (M26.621) Not Available [facility] 4 02:21:52 Somatofor m disorder 45055957 Active 2018 Psychogen ic dysphagia , including 'globus hystericu s'; Note: Date Diagnosed : 12/28/2018 2:44 PM (F45.8) Not Available [facility] 4 02:21:24 Feeling of lump in throat 354163118 Active 2024 NATALIYA ZAMORA PA-C [address] [place] [address], [place], [address] , [facility] 5 13:07:28 Impacted cerumen in right ear 40202434709 94957 Active 2024 NATALIYA ZAMORA PA-C [address] [facility],[place] [address], [place], [address] , [facility] - [facility] 13:08:59 Problem Notes None recorded. Procedures Surgical History Date Name Laterality Status Provider Name and Address Organization Details Recorded Time Cerumen removal without microscope right completed NATALIYA ZAMORA PA-C [address] [facility] [address], [place], [address], [facility] 06/30/2024 12:58:58 Imaging Results None recorded. [...] 4 mg tablet active Medicati on ID: [id number] B rand Name: ondanset alpesh HCl Send Method: E-Prescr ibed Sub s Allowed: subs OK Medic ationGen ericName : ondanset alpesh HCl Not Available Not Available Not Available famotidin e 40 mg tablet active Medicati on ID: [id number] B rand Name: famotidi ne Send Method: [...] mg tablet 09/10 completed Medicati on ID: [id number] B rand Name: ibuprofe n Send Method: [...] elayed release 09/10 completed Medicati on ID: [id number] D uration Value: 30 Brand Name: omeprazo [...] 50 mg tablet active Medicati on ID: [id number] B rand Name: sertrali ne Send Method: E-Prescr ibed Sub s Allowed: subs OK Medic ationGen ericName : sertrali ne Not Available Not Available Not Available Vitamin D3 50 mcg (2,000 unit) tablet TAKE 1 TABLET BY MOUTH EVERY DAY FOR 90 DAYS active Not Available Not Available No t Available Vienva 0.1 mg-20 mcg tablet active Medicati on ID: [id number] B rand Name: Vienva S end Method: [...] SNOMED-CT Code Diagnosis ICD10 Code Diagnosis Note [id number] NATALIYA ZAMORA PA-C [facility] [address] [address] 06/30/2024 10:18:42 06/30/2024 11:25:41 Pain of right temporomandibular joint 8689081937 [id number] M26.621 Feeling of lump in throat 648836214 R09.89 Impacted c erumen in right ear 8444446950 316288 H61.21 Health Concerns Section Related Observation LastModified by Organization Detai ls LastModified Time None Recorded Concern Status LastModified by Organization Details LastModified Time None Recorded Advance Directives Directive None Recorded Payers Insurance Date Sequence Insurance Name Policy Number Policy Guillen Covered Member ID Guillen Member ID Guarantor Name 06/30/2024 1 [facility] PL[facility] (MEDICAID HMO) [id number] Stephani Goins [id number] Stephani Goins 06/29/2024 1 [facility] ([facility]ICARE [facility]PLAC[facility]/ ADVANTAGE - HMO) Stephani Goins [id number] Stephani Goins Notes Date Note Type [...] endocrinology. No smoking history. ISMA ZHANG MD [address] [place] [address], [place], [address], [facility] 06/30/2024 17:26:26 OBGyn Episode No OBEpisode recorded.
== END 2024-09-22 12:33 | disposition home or self-care (01) ==
LOC: HO.US 12:32
PROVIDERS: PCP Family Medicine; Visit Provider Student in an Organized Health Care Education/Training Program
DX: E21.3 Hyperparathyroidism, unspecified (principal)
CPT/HCPCS: 76775

== ENCOUNTER → 2024-09-22 12:34 | Outpatient (BNV) | payer OTHER, SELFPAY | PROVIDERS: PCP Family Medicine; Visit Provider Radiology Vascular & Interventional Radiology | DX: E21.3 Hyperparathyroidism, unspecified (principal) | CPT/HCPCS: 76775 ==

== ENCOUNTER 2024-11-22 09:37 | Outpatient (AMB) | payer OTHER, SELFPAY ==
[2024-11-22 09:40] VITALS: BP 124/88; PULSE 81; O2SAT 98; BMI 31.2
--- NOTE | 2024-11-22 09:40 | A.OFFVIS_ITS ---
Vital Signs 11/22/24 09:40 Height 5 ft 6 in Weight 193 lb 1.999 oz BMI 31.2 BP 124/88 Blood Pressure Location Lt brachial Position Sitting Pulse 81 Pulse Source Pulse Oximeter Pulse Oximetry (%) 98 Oxygen Delivery Method Room Air Intake Visit Reasons: Hyperthyroidism Intake Note: Patient present today for Hyperthyroidism. School Guidance Counselor Required: No Accompanied by: Self / Same As Patient Allergies adhesive tape Allergy (Mild, Verified 11/22/24 09:47) Itching Medication List - Last Reconciled 11/22/24 by Rosalina Dupont MD cholecalciferol (vitamin D3) 50 mcg PO DAILY famotidine 20 mg PO BID ferrous sulfate 325 mg PO DAILY ibuprofen 600 mg PO Q8H PRN lorazepam (Ativan) 0.5 mg PO DAILY PRN methimazole 5 mg PO DAILY ondansetron mg PO riboflavin (vitamin B2) 400 mg PO DAILY sodium,potassium,mag sulfates 17.5-3.13-1.6 gram (Suprep Bowel Prep Kit) 480 mL orally; FOR COLONOSCOPY PREP sucralfate (Carafate) 2 grams (2 x 1 gram) PO .qacsupper Held on 08/23/24. Instructions: Doctor's Order sucralfate (Carafate) 2 grams (20 mL) PO DAILY HPI Comments Details: 48-year-old female coming in today for follow up of hyperthyroidism and hyperparathyroidism. Patient was previously following with [facility] endocrinology, however due to insurance coverage changes has to change her endocrinology care. Hyperthyroidism 2011 during hyperemesis, found to have thyroid dysfunction then resolved Then 2013 : palpitation , anxiety, got evaluated got diagnosed with hyperthyroidism Was started on methimazole and then lost to follow up Then reestablished care with PCP 1 year ago and restarted methimazole. currently on metimazole 5 mg daily. Palpitation improved. Anxiety still present. Still tired , not improved. Diarrhea she is on imodium. Experiencing hot flashes, last period was 1 year ago. Gained 10 lbs since summer 2024. Patient currently denies changes in appearance of eyes or vision changes, tremors, increased diaphoresis or dry skin. ? Some intermittent dysphagia. Patient denies any pain on swallowing or voice changes or difficulty breathing. Patient denies any history of childhood neck radiation. Denies having ever used lithium, amiodarone or biotin supplements. Patient denies any family history of thyroid cancer. 2 cousins , one had hemithyroidectomy unclear reason, the other one had Graves disease and had thyroidectomy, paternal cousins. Labs 06/16/2024 TSH 0.97 labs 07/29/2024 showed normal TSH of 1.47, normal free T4 of 0.90, normal total T3 of 110, undetectable TSI antibodies of less than 89, negative TSH receptor and TPO antibodies of less than 1 Ultrasound thyroid 08/08/2024 showed bilateral subcentimeter thyroid nodules not meeting criteria for FNA or follow up. Interval history for hyperthyroidism Thyroid uptake and scan done 09/15/2024 did not identify any hot total coal regions, showed diffuse homogeneous uptake with the increased uptake of 49.76% at 24:00 hours. This is more consistent with seronegative Graves disease. Last set of labs from 07/29/2024 showed normal TSH of 1.47, normal free T4 of 0.9 Currently on methimazole 5 mg daily, she is adherent to it now Hyperparathyroidism Patient tells me she was also diagnosed with primary hyperparathyroidism back when she was following with [facility] endocrinology about a year ago. I do not have records of this, however labs from October 2023 showed normal calcium levels. US 2020 B/L nephrolithiasis per [facility] records ? she doesnt think she ever had kidney stones or a renal ultrasound for that matter, she thinks she has a sister of the same name and they confused their medical records because they almost of the same name No fractures sister had kidney stones and hyper parathyroidism On vitamin D 1000 units daily No calcium supplemnets [place] milk here and there, yogurt once a week. vitamin-D level 07/29/2024 of 31, other labs obtained 07/29/2024 showed calcium of 10, ionized calcium normal at 5.2, albumin of 4.2, normal kidney function, PTH elevated at 93.4, 24 hour urine calcium showed 24 hour urine calcium of 203 mg per 24 hours, fractional excretion of calcium 0.11951 Interval history for elevated PTH 09/23/2024: Ultrasound of the kidneys did not show any kidney stones Parathyroid nuclear CT 09/19/2024: Did not identify any parathyroid adenoma Last set of labs from 07/29/2024: Calcium 10, ionized calcium 5.2, phosphorus 3.3, albumin 4.2, vitamin-D 31, PTH 93.4, EGFR greater than 60 Physical exam General: sitting comfortably in no acute distress HEENT: normocephalic/atraumatic, Neck: supple, symmetrical, no thyromegaly , Cardiac: normal heart sounds Pulm: normal breath sounds B/L, no added breath sounds Abd: not distended, no tenderness Extremities: no edema, no signs of myxedema Laboratory Tests 11/11/23 09:35 Calcium 10.2 Albumin 4.3 Laboratory Tests 11/11/23 07/28/24 07/29/24 09:35 16:00 14:22 Creatinine 0.91 Estimated GFR > 60 Calcium 10.2 10.0 Ionized Calcium 5.2 Phosphorus 3.3 Magnesium 2.1 Albumin 4.3 4.2 25-OH Vitamin D Total 31.0 TSH 1.47 Free T4 0.90 Total T3 110 Thyroid Stim Immunoglob <89 PTH Intact 93.4 H Ur 24 Hour Volume 2024 Ur Creatinine mg/dL 79.37 Ur Creatinine 24 Hour 1.6 Ur Calcium 24 Hr 203 Calcium/Creat 24 Hr 125 Laboratory Tests 07/29/24 14:22 Thyroid Peroxidase Ab <1 TSH Receptor Ab <1.00 NM THYROID UPTAKE AND SCAN 09/15/24 CLINICAL INFORMATION: Thyrotoxicosis. Methimazole x1 week. TSH 1.47 miu/ml, total T3 110 ng/dl COMPARISON: None available. TECHNIQUE: Following the oral administration of 300 microcuries of I-123 sodium iodide, thyroid uptake was performed and expressed as a percentage of the administrated dose after 4 and 24 hours. Gamma scintillation camera images of the thyroid in the anterior and right and left anterior oblique views were obtained using a pinhole collimator following the administration of 10 mCi Tc-99m pertechnetate. FINDINGS: The uptake is 28.7% at 4 hours and 49.76% at 24 hours. On technetium thyroid scan there is symmetric bilateral thyroid lobe activity. No focal cold defect or hot nodule seen. The visualized upper chest appears unremarkable. NM/NM thyroid w uptake IMPRESSION: Normal thyroid scan. Abnormal radioactive iodine uptake of 20% at 4 hours and 49.76% at 25. Findings consistent with hyperthyroidism. Electronically signed by: Estevan Zamora MD 09/16/2024 12:36 PM EDT RP EXAMINATION: NM PARATHYROID 09/19/24 HISTORY: E21.3 - Hyperparathyroidism, unspecified. TECHNIQUE: A parathyroid imaging study was performed following the intravenous administration of 30 mCi technetium 99m-sestamibi. Planar images were obtained at 20 minutes and 2 hours. The patient could not tolerate SPECT imaging due to anxiety and claustrophobia. COMPARISON: Correlation is made with a thyroid ultrasound dated 08/08/2024 and a thyroid uptake and scan dated 09/15/2024. FINDINGS: Initial images demonstrate a homogeneous distribution of activity throughout both thyroid lobes. No foci of increased activity or cold defects are identified. Delayed images demonstrate washout of activity from the thyroid gland. There are no foci of residual abnormal increased uptake to suggest a parathyroid adenoma. NM/NM parathyroid IMPRESSION: No scintigraphic evidence of a parathyroid adenoma. Electronically signed by: David Shaikh MD 09/19/2024 03:47 PM EDT RP US Renal 09/23/24 Comparison: None Findings: Right kidney normal size and echotexture, 10.5 cm length. Left kidney normal size and echotexture, 11.4 cm length. No collecting system dilatation of either kidney. Normal color Doppler. IMPRESSION: 1. Normal kidneys. This document has been electronically signed by: Vinny Lopez MD on 09/23/2024 10:22:32 ultrasound thyroid 08/08/2024 HISTORY: E05.90 - Thyrotoxicosis, unspecified without thyrotoxic crisis 08/08/24 or storm TECHNIQUE: Real-time grayscale ultrasound imaging was performed and images were reviewed. COMPARISON: There are no prior studies for comparison. FINDINGS: SIZE: The right thyroid lobe measures 5.8 x 2.1 x 1.5 cm. The left thyroid lobe measures 4.5 x 1.1 x 1.5 cm. The isthmus measures 3 mm. FLOW: Flow to the gland is mildly increased. ECHOGENICITY: The echotexture of the gland is homogeneous. NODULES: There are multiple subcentimeter nodules noted as described below: Nodule #: 1 Location: Midportion of the right thyroid lobe measuring 6 x 3 x 4 mm. Shape: Wider than tall (0 points) Margins: Ill-defined (0 points) Echotexture: Hypoechoic (2 points) Composition: Solid (2 points) Calcifications: None (0 points) Total points: 4 TIRADS: TR4: Moderately suspicious. Nodule #: 2 Location: Midportion of the right thyroid lobe measuring 4 x 3 x 3 mm. Shape: Round (0 points) Margins: Ill-defined (0 points) Echotexture: Isoechoic (1 point) Composition: Solid (2 points) Calcifications: None (0 points) Total points: 3 TIRADS: TR3: Mildly suspicious. Nodule #: 3 Location: Lower pole of the right thyroid lobe measuring 9 x 5 x 6 mm. Shape: Wider than tall (0 points) Margins: Ill-defined (0 points) Echotexture: Hypoechoic (2 points) Composition: Mostly solid (2 points) Calcifications: None (0 points) Total points: 4 TIRADS: TR4: Moderately suspicious. Nodule #: 4 Location: Isthmus, measuring 4 x 2 x 6 mm. Shape: Wider than tall (0 points) Margins: Smooth (0 points) Echotexture: Hypoechoic (2 points) Composition: Indeterminate (2 points) Calcifications: None (0 points) Total points: 4 TIRADS: TR4: Moderately suspicious. US/US thyroid IMPRESSION: Multiple subcentimeter thyroid nodules as described. 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 Most recent vitamin-D level 07/29/2024 of 31, other labs obtained 07/29/2024 showed calcium of 10, ionized calcium normal at 5.2, albumin of 4.2, normal kidney function, PTH elevated at 93.4, 24 hour urine calcium showed 24 hour urine calcium of 203 mg per 24 hours, fractional excretion of calcium 0.73666 She does not have any history of kidney stones, fractures or osteoporosis. She does have a family history of kidney stones and hypercalcemia in sister, we will also have to think if she has possibly FHH. Her fraction excretion of calcium is 0.015, given this is greater than 0.01, likely this is normocalcemic hyperparathyroidism but can not exactly rule out familial hypocalciuric hypercalcemia. 09/23/2024: Ultrasound of the kidneys did not show any kidney stones Parathyroid nuclear CT 09/19/2024: Did not identify any parathyroid adenoma Last set of labs from 07/29/2024: Calcium 10, ionized calcium 5.2, phosphorus 3.3, albumin 4.2, vitamin-D 31, PTH 93.4, EGFR greater than 60 At this point findings are possibly consistent with PTH elevation in the setting of poor nutritional intake of calcium though she has been trying to increase it, or normocalcemic hyperpara/. If she does have the latter, she is less than age 49, could possibly consider surgical management due to long-term condition, however at this point I would like to just keep an eye on it. Especially given we are not sure of the diagnosis. I have asked her to increase her nutritional intake of calcium. Plan: -continue vitamin-D 1000 to 2000 units daily -incorporate calcium in diet to account for 1000 mg daily starting now so that her urine calcium levels are reflective of a good calcium intake -do blood work at [facility], prior to follow up in 3 months (2) Hyperthyroidism: Code(s): E05.90 - Thyrotoxicosis, unspecified without thyrotoxic crisis or storm Category: Medical Plan: 48-year-old female with a history of hyperthyroidism diagnosed sometime in 2011, who has been inconsistent with the her follow up and adherence to methimazole therapy, who is coming today for follow up. Now with good adherence she is on methimazole 5 mg daily, blood work done in July 2024 showed undetectable TSI, TSH receptor antibodies. Ultrasound thyroid done in July 2024 does show bilateral subcentimeter nodules, none of these meet criteria for FNA or follow up. TSH from July 2024 within normal range and normal free T4 and total T3. Thyroid uptake and scan done 09/15/2024 did not identify any hot total coal regions, showed diffuse homogeneous uptake with the increased uptake of 49.76% at 24:00 hours. This is more consistent with seronegative Graves disease. Last set of labs from 07/29/2024 showed normal TSH of 1.47, normal free T4 of 0.9 Plan: -Continue taking methimazole 5 mg daily in the morning. - ordered TSH and free T4 plus total T3 to be repeated prior to follow up in 3 months -follow up in 3 months Plan See above Orders: Orders Creatinine 10 Weeks E0. - Thyrotoxicosis, unspecified without thyrotoxic crisis or storm, E21.3 - Hyperparathyroidism, unspecified Free T4 (Free Thyroxine) 10 Weeks E0. - Thyrotoxicosis, unspecified without thyrotoxic crisis or storm, E21.3 - Hyperparathyroidism, unspecified Triiodothyronine T3 Total 10 Weeks E0. - Thyrotoxicosis, unspecified without thyrotoxic crisis or storm, E21.3 - Hyperparathyroidism, unspecified Albumin Level 10 Weeks E0. - Thyrotoxicosis, unspecified without thyrotoxic crisis or storm, E21.3 - Hyperparathyroidism, unspecified Calcium 10 Weeks E0. - Thyrotoxicosis, unspecified without thyrotoxic crisis or storm, E21.3 - Hyperparathyroidism, unspecified Calcium, Ionized 10 Weeks E0. - Thyrotoxicosis, unspecified without thy rotoxic crisis or storm, E21.3 - Hyperparathyroidism, unspecified Phosphorus 10 Weeks E0.90 - Thyrotoxicosis, unspecified without thyrotoxic crisis or storm, E21.3 - Hyperparathyroidism, unspecified Parathyroid Hormone Intact 10 Weeks E0.90 - Thyrotoxicosis, unspecified without thyrotoxic crisis or storm, E21.3 - Hyperparathyroidism, unspecified Vitamin D 25-OH Total 10 Weeks E0 - Thyrotoxicosis, unspecified without thyrotoxic crisis or storm, E21.3 - Hyperparathyroidism, unspecified Thyroid Stimulating Hormone 10 Weeks E05.90 - Thyrotoxicosis, unspecified without thyrotoxic crisis or storm, E21.3 - Hyperparathyroidism, unspecified Medications: Refilled methimazole 5 mg PO DAILY 30 tabs 8RF Patient Instructions: Continue methimazole 5 mg daily Do blood work at [facility] [address] [place] [address] 2 weeks prior to fup , please ensure thye fax over the results to me Coding Level of Care Code Est Pt Level 4 (08579) Diagnoses Hyperparathyroidism E21.3 Hyperthyroidism E05.90 Time Spent (min) 30
--- OUTSIDE RECORDS SUMMARY | 2024-11-22 10:08 | XMS_ITS | Clinical Summary ---
Author Organization [facility] Address [address] [place] [address] Phone Care Team Providers Care Rack Puller Name Role Phone Juany Power MD Primary Care Provider [phone] Surgical History Surgery Date Site/Laterality Comments SECTION PROCEDURE: MT DELIVERY ONLY; COMMENT: X 3 Medical History [...] 5 Years) and At-Risk Patients (6 to 49 Years) (1 of 2 - PCV) 1993 Cervical Cancer Screening: Pap Smear 12/27/1995 Colorectal Cancer Screening: Colonoscopy 04/16/2022 Depression Screening 04/16/2022 HIV Screening 04/16/2022 Hepatitis C Screening 04/16/2022 Social Influencers of Health Screening 04/16/2022 COVID-19 Vaccine ( season) 2024 06/24/2021, 07/11/2020, 06/13/2020 Influenza Vaccine (#1) 2025 , 03/02/2023, 03/13/2022, Additional history exists Breast Cancer Screening 08/01/2026 08/02/19, 08/22/2022, 03/22/2021, [...] year. [facility]amm[facility] location: [facility] [address], [address] -------- FINAL REPORT -------- Dictated By: Kadeem Valdez Dictated Date: 08/01/2024 12:42 ET Assigned Physician: Kadeem Valdez Reviewed and Electronically Signed By: Kadeem Valdez Signed Date: 08/01/2024 12:47 ET Workstation ID: [id number] Transcribed By: Self Edit Transcribed Date: 08/01/2024 12:42 ET Narrative 08/01/2024 12:47 PM EDT EXAM: SCREENING MAMMOGRAPHY, BILATERAL HISTORY: SCREENING. Father with history of breast cancer. COMPARISON: 08/20/2022, 03/22/2021, 01/03/2020 TECHNIQUE: Synthesized CC and MLO projections of each breast. Tomosynthesis of each breast in the CC and MLO projections. 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 TISSUE DENSITY: There are [...] year. Mammography location: [facility] [address], [address] -------- FINAL REPORT -------- Dictated By: Kadeem Valdez Dictated Date: 08/01/2024 12:42 ET Assigned Physician: Kadeem Valdez Reviewed and Electronically Signed By: Kadeem Valdez Signed Date: 08/01/2024 12:47 ET Workstation ID: [id number] Transcribed By: Self Edit Transcribed Date: 08/01/2024 12:42 ET us Self Referral Sppl IMG BI PROCEDURES Final Resul t from Last 3 Months or Most Recently Relevant to Health Maintenance Insurance [facility] PLAN Care Teams Rack Puller Relationship Specialty Start Date End Date Juany Power MD [address] [place] [address] PCP - General Internal Medicine 08/01/24
--- OUTSIDE RECORDS SUMMARY | 2024-11-22 10:08 | XMS_ITS | Clinical Summary ---
Author Organization [facility] Address [address] [place] [address] Care Team Providers Care Chemistry Quality Control Analyst Name Role Phone Mandi Lu RD Primary Care Provider [phone] Source Comments PLEASE NOTE, if this patient [...] activity Exercise No Mandi Lu RD Insurance [facility] [employer] Member Subscriber Plan / Payer (Ef fective 2013-Present) Name:Stephani Goins Relation to Subscriber:Self Name:Stephani Goins Payer ID:[id number] Group ID:[id number] Type:Medicaid Address: [address] [address] [place] [address] Care Teams Chemistry Quality Control Analyst Relationship Specialty Start Date End Date Mandi Lu [address] [place] [address] PCP - General Dentist News Camera Operator 02/15/13
--- OUTSIDE RECORDS SUMMARY | 2024-11-22 10:08 | XMS_ITS | Data Portability ---
Author Organization [place] [facility], [facility] Address [address] [facility] [address] [place] [address] Care Team Providers Care Truck Loader Name Role Phone CHICHO ZENA Primary Care [...] this time. Offered to refer her to [facility] for an additional opinion if [...] Organization Details Recorded Time Mass of neck 711041321 Active 2018 Localized swelling, mass and lump, neck; Location: right Not e: Date Diagnosed : 12/28/2018 3:00 PM (R22.1) Not Available [facility] 4 02:21:22 Neck swelling 879457403 Active 2018 Localized swelling, mass and lump, neck; Location: right Not e: Date Diagnosed : 12/28/2018 3:00 PM (R22.1) Not Available [facility] 4 02:21:22 Respirato ry finding 731069278 Active 2019 Feeling of foreign body in throat; Note: Date Diagnosed : 09/22/2019 4:32 PM (R09.89) Not Available [facility] 4 02:21:59 Cardiovas cular finding 137940327 Active 2019 Feeling of foreign body in throat; Note: Date Diagnosed : 09/22/2019 4:32 PM (R09.89) Not Available [facility] 4 02:21:59 Laryngeal spasm 112998335 Active 2019 Laryngeal spasm; Note: Date Diagnosed : 02/24/2020 3:00 PM (J38.5) Not Available [facility] 4 02:21:41 Pain of right temporoma ndibular joint 57694275028 938438 Active 2022 Arthralgi a of right temporoma ndibular joint; Note: Date Diagnosed : 04/21/2023 4:10 PM (M26.621) Not Available [facility] 4 02:21:52 Somatofor m disorder 24573717 Active 2018 Psychogen ic dysphagia , including 'globus hystericu s'; Note: Date Diagnosed : 12/28/2018 2:44 PM (F45.8) Not Available [facility] 4 02:21:24 Feeling of lump in throat 587104879 Active 2024 NATALIYA ZAMORA PA-C [address] [place] [address], [facility] [place], [address] , [facility] - [facility] 5 13:07:28 Impacted cerumen in right ear 24287520504 18118 Active 2024 NATALIYA ZAMORA PA-C [address] [facility],[place] [address], [place], [address] , [place] [facility] 13:08:59 Problem Notes None recorded. Procedures Surgical History Date Name Laterality Status Provider Name and Address Organization Details Recorded Time Cerumen removal without microscope right completed NATALIYA ZAMORA PA-C [address] [facility],[place] [address], [place], [address], [place] - [facility] 06/30/2024 12:58:58 Imaging Results None recorded. Procedure [...] 4 mg tablet active Medicati on ID: [id number] B rand Name: ondanset alpesh HCl Send Method: E-Prescr ibed Sub s Allowed: subs OK Medic ationGen ericName : ondanset alpesh HCl Not Available Not Available Not Available famotidin e 40 mg tablet active Medicati on ID: [id number] B rand Name: famotidi ne Send Method: [...] mg tablet 09/10 completed Medicati on ID: [id number] B rand Name: ibuprofe n Send Method: [...] elayed release 09/10 completed Medicati on ID: [id number] D uration Value: 30 Brand Name: omeprazo [...] 50 mg tablet active Medicati on ID: [id number] B rand Name: sertrali ne Send Method: E-Prescr ibed Sub s Allowed: subs OK Medic ationGen ericName : sertrali ne Not Available Not Available Not Available Vitamin D3 50 mcg (2,000 unit) tablet TAKE 1 TABLET BY MOUTH EVERY DAY FOR 90 DAYS active Not Available Not Available No t Available Vienva 0.1 mg-20 mcg tablet active Medicati on ID: [id number] B rand Name: Vienva S end Method: [...] SNOMED-CT Code Diagnosis ICD10 Code Diagnosis Note [id number] NATALIYA ZAMORA PA-C [facility] [address] [address] 06/30/2024 10:18:42 06/30/2024 11:25:41 Pain of right temporomandibular joint 9180881632 8120616 M26.621 Feeling of lump in throat 804130208 R09.89 Impacted c erumen in right ear 3418545187 697235 H61.21 Health Concerns Section Related Observation LastModified by Organization Detai ls LastModified Time None Recorded Concern Status LastModified by Organization Details LastModified Time None Recorded Advance Directives Directive None Recorded Payers Insurance Date Sequence Insurance Name Policy Number Policy Guillen Covered Member ID Guillen Member ID Guarantor Name 06/30/2024 1 [facility] [employer] (MEDICAID HMO) [id number] Stephani Goins [id number] Stephani Goins 06/29/2024 1 [facility] (MEDICARE REPLACEMENT/ ADVANTAGE - HMO) Stephani Goins [id number] Stephani Goins Notes Date Note Type [...] endocrinology. No smoking history. ISMA ZHANG MD [address] [place] [address], [phone], [facility] 06/30/2024 17:26:26 OBGyn Episode No OBEpisode recorded.
== END 2024-11-22 10:17 | disposition home or self-care (01) ==
LOC: HO.ENCR 09:38
PROVIDERS: PCP Family Medicine; Visit Provider Student in an Organized Health Care Education/Training Program
DX: E21.3 Hyperparathyroidism, unspecified (principal); E05.90 Thyrotoxicosis, unspecified without thyrotoxic crisis or storm
CPT/HCPCS: 99214

== ENCOUNTER → 2024-11-22 09:37 | Outpatient (BNVA) | payer OTHER, SELFPAY | PROVIDERS: PCP Family Medicine; Visit Provider Student in an Organized Health Care Education/Training Program | DX: E21.3 Hyperparathyroidism, unspecified (principal); E05.90 Thyrotoxicosis, unspecified without thyrotoxic crisis or storm | CPT/HCPCS: 99212 ==

== ENCOUNTER 2025-02-02 14:37 | Outpatient (REF) | payer OTHER, SELFPAY ==
--- OUTSIDE RECORDS SUMMARY | 2025-02-02 16:22 | XMS_ITS | Clinical Summary ---
Author Organization [facility] Address [address] [place] [address] Care Team Providers Care Soloist Dancer Name Role Phone Mandi Lu RD Primary Care Provider [phone] Source Comments PLEASE NOTE, if this patient [...] activity Exercise No Mandi Lu RD [facility] Member Subscriber Plan / Payer (Ef fective 2013-Present) Name:Stephani Goins Relation to Subscriber:Self Name:Stephani Goins Payer ID:[id number] Group ID:[id number] Type:Medicaid Address: [address] [address] [place] [address] Care Teams Soloist Dancer Relationship Specialty Start Date End Date Mandi Lu [address] [place] [address] PCP - General Dentist Top Dyeing Machine Tender 02/15/13
--- OUTSIDE RECORDS SUMMARY | 2025-02-02 16:22 | XMS_ITS | Clinical Summary ---
Author Organization [facility] Address [address] [place] [address] Phone Care Team Providers Care Architectural Designer Name Role Phone Juany Power MD Primary Care Provider [phone] Surgical History Surgery Date Site/Laterality Comments SECTION PROCEDURE: [place] DELIVERY ONLY; COMMENT: X 3 Medical History [...] Information Value Date Recorded Sex Assigned at Female 01/09/2025 3:27 PM EDT Legal Sex Female 2:56 PM EST Gender Identity Female 01/09/2025 3:27 PM EDT Sexual Orientation Straight 01/09/2025 3: 27 PM EDT Obstetrics History Para Term AB IAB SAB [...] 08/01/2024 10:43 AM EDT Plan of Treatment Upcoming Encounters Date Type Department Care Team (Late st Contact Info) Description 04/04/2025 10:45 AM EST Appointment [facility] Xray [address] [place] [address] Health Maintenance Due Date Last Done Comments Hepatitis B Vaccines (1 of 3 - 19+ 3-dose series) 1993 Pneumococcal Vaccine: 50+ Years (1 of 2 - PCV) 1993 Cervical Cancer Screening: Pap Smear 12/27/1995 Colorectal Cancer Screening: Colonoscopy 04/16/2022 HIV Screening 04/16/2022 Hepatitis C Screening 04/16/2022 Social Influencers of Health Screening 04/16/2022 Depression Screening 05/18/2024 Zoster Vaccines (1 of 2) 2024 COVID-19 Vaccine ( - season) 2025 06/24/2021, 07/11/2020, 06/13/2020 Influenza Vaccine (#1) 2025 [...] year. [facility] [address], [address] -------- FINAL REPORT -------- Dictated By: Kadeem Valdez Dictated Date: 08/01/2024 12:42 ET Assigned Physician: Kadeem Valdez Reviewed and Electronically Signed By: Kadeem Valdez Signed Date: 08/01/2024 12:47 ET Workstation ID: [id number] Transcribed By: Self Edit Transcribed Date: 08/01/2024 12:42 ET Narrative 08/01/2024 12:47 PM EDT EXAM: SCREENING MAMMOGRAPHY, BILATERAL HISTORY: SCREENING. Father with history of breast cancer. COMPARISON: 08/20/2022, 03/22/2021, 01/03/2020 TECHNIQUE: Synthesized CC and MLO projections of each breast. Tomosynthesis of each breast in the CC and MLO projections. 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 TISSUE DENSITY: There are scattered [...] year. Mamm[facility] location[facility] at [address], [address] -------- FINAL REPORT -------- Dictated By: Kadeem Valdez Dictated Date: 08/01/2024 12:42 ET Assigned Physician: Kadeem Valdez Reviewed and Electronically Signed By: Kadeem Valdez Signed Date: 08/01/2024 12:47 ET Workstation ID: [id number] Transcribed By: Self Edit Transcribed Date: 08/01/2024 12:42 ET us Self Referral Sppl IMG BI PROCEDURES Final Resul t from Last 3 Months or Most Recently Relevant to Health Maintenance Insurance [facility] [employer] Care Teams Architectural Designer Relationship Specialty Start Date End Date Juany Power MD [address] [place] [id number] PCP - General Internal Medicine 08/01/24
[2025-02-02 18:17] LABS: Albumin Level 4.5 g/dL (3.5-5.0); Calcium 9.6 mg/dL (8.4-10.2); Estimated Glomerular Filt Rate 59
[2025-02-02 18:36] LABS: Parathyroid Hormone Intact 79.6 pg/mL (8.7-77.1)
[2025-02-02 18:47] LABS: Free T4 (Free Thyroxine) 0.84 ng/dL (0.71-1.85); Thyroid Stimulating Hormone 1.12 uIU/mL (0.32-4.0)
[2025-02-03 13:49] LABS: Calcium, Ionized 5.2 mg/dL (4.7-5.5)
== END 2025-02-02 14:38 | disposition home or self-care (01) ==
LOC: HO.HKASLDS 14:37
PROVIDERS: Visit Provider Student in an Organized Health Care Education/Training Program
DX: E05.90 Thyrotoxicosis, unspecified without thyrotoxic crisis or storm (principal); E21.3 Hyperparathyroidism, unspecified
CPT/HCPCS: 36415; 82040; 82306; 82310; 82330; 82565; 83970; 84100; 84439; 84443; 84480

== ENCOUNTER 2025-02-23 10:41 | Outpatient (AMB) | payer OTHER, SELFPAY ==
--- NOTE | 2025-02-23 10:42 | MHC.OFFVIS ---
Vital Signs 02/23/25 10:43 Height 5 ft 6 in Weight 192 lb 3.889 oz BMI 31.0 BP 132/100 H Blood Pressure Location Lt brachial Position Sitting Pulse 92 Pulse Source Pulse Oximeter Pulse Oximetry (%) 95 Oxygen Delivery Method Room Air Intake Visit Reasons: Hyperthyroidism Intake Note: Patient present today for Hyperthyroidism office visit. Schedule Planning Manager Required: No Accompanied by: Self / Same As Patient Allergies adhesive tape Allergy (Mild, Verified 02/23/25 10:47) Itching HPI Comments Details: 48-year-old female coming in today for follow up of hyperthyroidism and hyperparathyroidism. Patient was previously following with [facility] endocrinology, however due to insurance coverage changes has to change her endocrinology care. Hyperthyroidism 2011 during hyperemesis, found to have thyroid dysfunction then resolved Then 2012 : palpitation , anxiety, got evaluated got diagnosed with hyperthyroidism Was started on methimazole and then lost to follow up Then reestablished care with PCP 1 year ago and restarted methimazole. currently on metimazole 5 mg daily. Palpitation improved. Anxiety still present. Still tired , not improved. Diarrhea she is on imodium. Experiencing hot flashes, last period was 1 year ago. Gained 10 lbs since summer 2024. Patient currently denies changes in appearance of eyes or vision changes, tremors, increased diaphoresis or dry skin. ? Some intermittent dysphagia. Patient denies any pain on swallowing or voice changes or difficulty breathing. Patient denies any history of childhood neck radiation. Denies having ever used lithium, amiodarone or biotin supplements. Patient denies any family history of thyroid cancer. 2 cousins , one had hemithyroidectomy unclear reason, the other one had Graves disease and had thyroidectomy, paternal cousins. Labs 06/16/2024 TSH 0.97 labs 07/29/2024 showed normal TSH of 1.47, normal free T4 of 0.90, normal total T3 of 110, undetectable TSI antibodies of less than 89, negative TSH receptor and TPO antibodies of less than 1 Ultrasound thyroid 08/08/2024 showed bilateral subcentimeter thyroid nodules not meeting criteria for FNA or follow up. Thyroid uptake and scan done 09/15/2024 did not identify any hot or cold regions, showed diffuse homogeneous uptake with the increased uptake of 49.76% at 24:00 hours. This is more consistent with seronegative Graves disease. Last set of labs from 07/29/2024 showed normal TSH of 1.47, normal free T4 of 0.9 Interval history for hyperthyroidism 02/02/2025: TSH 1.12, free T4 0.84, total T3 106 Currently on methimazole 5 mg daily, Hyperparathyroidism Patient tells me she was also diagnosed with primary hyperparathyroidism back when she was following with [facility] endocrinology about a year ago. I do not have records of this, however labs from October 2023 showed normal calcium levels. US 2019 B/L nephrolithiasis per [facility] records ? she doesnt think she ever had kidney stones or a renal ultrasound for that matter, she thinks she has a sister of the same name and they confused their medical records because they almost of the same name No fractures sister had kidney stones and hyper parathyroidism On vitamin D 1000 units daily No calcium supplemnets Maple Plain milk here and there, yogurt once a week. vitamin-D level 07/29/2024 of 31, other labs obtained 07/29/2024 showed calcium of 10, ionized calcium normal at 5.2, albumin of 4.2, normal kidney function, PTH elevated at 93.4, 24 hour urine calcium showed 24 hour urine calcium of 203 mg per 24 hours, fractional excretion of calcium 0.58904 09/23/2024: Ultrasound of the kidneys did not show any kidney stones Parathyroid nuclear CT 09/19/2024: Did not identify any parathyroid adenoma labs from 07/29/2024: Calcium 10, ionized calcium 5.2, phosphorus 3.3, albumin 4.2, vitamin-D 31, PTH 93.4, EGFR greater than 60 Interval history for elevated PTH 02/02/2025: Creatinine 1, EGFR 59, calcium 9.6, ionized calcium 5.2, phosphorus 3.6, vitamin-D 54.6, PTH 79.6 Physical exam General: sitting comfortably in no acute distress HEENT: normocephalic/atraumatic, Neck: supple, symmetrical, no thyromegaly , Cardiac: normal heart sounds Pulm: normal breath sounds B/L, no added breath sounds Abd: not distended, no tenderness Extremities: no edema, no signs of myxedema Laboratory Tests 11/11/23 09:35 Calcium 10.2 Albumin 4.3 Laboratory Tests 11/11/23 07/28/24 07/29/24 09:35 16:00 14:22 Creatinine 0.91 Estimated GFR > 60 Calcium 10.2 10.0 Ionized Calcium 5.2 Phosphorus 3.3 Magnesium 2.1 Albumin 4.3 4.2 25-OH Vitamin D Total 31.0 TSH 1.47 Free T4 0.90 Total T3 110 Thyroid Stim Immunoglob <89 PTH Intact 93.4 H Ur 24 Hour Volume 2024 Ur Creatinine mg/dL 79.37 Ur Creatinine 24 Hour 1.6 Ur Calcium 24 Hr 203 Calcium/Creat 24 Hr 125 Laboratory Tests 07/29/24 14:22 Thyroid Peroxidase Ab <1 TSH Receptor Ab <1.00 Laboratory Tests 11/11/23 07/29/24 02/02/25 09:35 14:22 14:40 WBC 7.7 Absolute Neuts (auto) 4.0 Creatinine 0.91 1.00 Estimated GFR > 60 59 Calcium 10.0 9.6 Ionized Calcium 5.2 5.2 Phosphorus 3.3 3.6 Magnesium 2.1 Albumin 4.2 25-OH Vitamin D Total 31.0 54.6 TSH 1.47 1.12 Free T4 0.90 0.84 Total T3 110 106 Thyroid Stim Immunoglob <89 PTH Intact 93.4 H 79.6 H Thyroid Peroxidase Ab <1 TSH Receptor Ab <1.00 NM THYROID UPTAKE AND SCAN 09/15/24 CLINICAL INFORMATION: Thyrotoxicosis. Methimazole x1 week. TSH 1.47 miu/ml, total T3 110 ng/dl COMPARISON: None available. TECHNIQUE: Following the oral administration of 300 microcuries of I-123 sodium iodide, thyroid uptake was performed and expressed as a percentage of the administrated dose after 4 and 24 hours. Gamma scintillation camera images of the thyroid in the anterior and right and left anterior oblique views were obtained using a pinhole collimator following the administration of 10 mCi Tc-99m pertechnetate. FINDINGS: The uptake is 28.7% at 4 hours and 49.76% at 24 hours. On technetium thyroid scan there is symmetric bilateral thyroid lobe activity. No focal cold defect or hot nodule seen. The visualized upper chest appears unremarkable. NM/NM thyroid w uptake IMPRESSION: Normal thyroid scan. Abnormal radioactive iodine uptake of 20% at 4 hours and 49.76% at 25. Findings consistent with hyperthyroidism. Electronically signed by: Estevan Zamora MD 09/16/2024 12:36 PM EDT RP EXAMINATION: NM PARATHYROID 09/19/24 HISTORY: E21.3 - Hyperparathyroidism, unspecified. TECHNIQUE: A parathyroid imaging study was performed following the intravenous administration of 30 mCi technetium 99m-sestamibi. Planar images were obtained at 20 minutes and 2 hours. The patient could not tolerate SPECT imaging due to anxiety and claustrophobia. COMPARISON: Correlation is made with a thyroid ultrasound dated 08/08/2024 and a thyroid uptake and scan dated 09/15/2024. FINDINGS: Initial images demonstrate a homogeneous distribution of activity throughout both thyroid lobes. No foci of increased activity or cold defects are identified. Delayed images demonstrate washout of activity from the thyroid gland. There are no foci of residual abnormal increased uptake to suggest a parathyroid adenoma. NM/NM parathyroid IMPRESSION: No scintigraphic evidence of a parathyroid adenoma. Electronically signed by: David Shaikh MD 09/19/2024 03:47 PM EDT US Renal 09/23/24 Comparison: None Findings: Right kidney normal size and echotexture, 10.5 cm length. Left kidney normal size and echotexture, 11.4 cm length. No collecting system dilatation of either kidney. Normal color Doppler. IMPRESSION: 1. Normal kidneys. This document has been electronically signed by: Vinny Lopez MD on 09/23/2024 10:22:32 ultrasound thyroid 08/08/2024 HISTORY: E05.90 - Thyrotoxicosis, unspecified without thyrotoxic crisis 08/08/24 or storm TECHNIQUE: Real-time grayscale ultrasound imaging was performed and images were reviewed. COMPARISON: There are no prior studies for comparison. FINDINGS: SIZE: The right thyroid lobe measures 5.8 x 2.1 x 1.5 cm. The left thyroid lobe measures 4.5 x 1.1 x 1.5 cm. The isthmus measures 3 mm. FLOW: Flow to the gland is mildly increased. ECHOGENICITY: The echotexture of the gland is homogeneous. NODULES: There are multiple subcentimeter nodules noted as described below: Nodule #: 1 Location: Midportion of the right thyroid lobe measuring 6 x 3 x 4 mm. Shape: Wider than tall (0 points) Margins: Ill-defined (0 points) Echotexture: Hypoechoic (2 points) Composition: Solid (2 points) Calcifications: None (0 points) Total points: 4 TIRADS: TR4: Moderately suspicious. Nodule #: 2 Location: Midportion of the right thyroid lobe measuring 4 x 3 x 3 mm. Shape: Round (0 points) Margins: Ill-defined (0 points) Echotexture: Isoechoic (1 point) Composition: Solid (2 points) Calcifications: None (0 points) Total points: 3 TIRADS: TR3: Mildly suspicious. Nodule #: 3 Location: Lower pole of the right thyroid lobe measuring 9 x 5 x 6 mm. Shape: Wider than tall (0 points) Margins: Ill-defined (0 points) Echotexture: Hypoechoic (2 points) Composition: Mostly solid (2 points) Calcifications: None (0 points) Total points: 4 TIRADS: TR4: Moderately suspicious. Nodule #: 4 Location: Isthmus, measuring 4 x 2 x 6 mm. Shape: Wider than tall (0 points) Margins: Smooth (0 points) Echotexture: Hypoechoic (2 points) Composition: Indeterminate (2 points) Calcifications: None (0 points) Total points: 4 TIRADS: TR4: Moderately suspicious. US/US thyroid IMPRESSION: Multiple subcentimeter thyroid nodules as described. 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 Most recent vitamin-D level 07/29/2024 of 31, other labs obtained 07/29/2024 showed calcium of 10, ionized calcium normal at 5.2, albumin of 4.2, normal kidney function, PTH elevated at 93.4, 24 hour urine calcium showed 24 hour urine calcium of 203 mg per 24 hours, fractional excretion of calcium 0.95687 She does not have any history of kidney stones, fractures or osteoporosis. She does have a family history of kidney stones and hypercalcemia in sister, we will also have to think if she has possibly FHH. Her fraction excretion of calcium is 0.015, given this is greater than 0.01, likely this is normocalcemic hyperparathyroidism but can not exactly rule out familial hypocalciuric hypercalcemia. 09/23/2024: Ultrasound of the kidneys did not show any kidney stones Parathyroid nuclear CT 09/19/2024: Did not identify any parathyroid adenoma Last set of labs from 07/29/2024: Calcium 10, ionized calcium 5.2, phosphorus 3.3, albumin 4.2, vitamin-D 31, PTH 93.4, EGFR greater than 60 At this point findings are possibly consistent with PTH elevation in the setting of poor nutritional intake of calcium though she has been trying to increase it, or normocalcemic hyperpara/. I had asked her to repeat blood work at [facility] since we have had some variations in the PTH assay at our lab. However patient did blood work at our lab 02/02/2025: Creatinine 1, EGFR 59, calcium 9.6, ionized calcium 5.2, phosphorus 3.6, vitamin-D 54.6, PTH 79.6 , for now calcium levels remain within normal range, PTH elevated. I will have her repeat labs at [facility] prior to her next follow up. Plan: -continue vitamin-D 1000 to 2000 units daily -incorporate calcium in diet to account for 1000 mg daily starting now so that her urine calcium levels are reflective of a good calcium intake -do blood work at [facility], prior to follow up in 6 months, papers given (2) Hyperthyroidism: Code(s): E05.90 - Thyrotoxicosis, unspecified without thyrotoxic crisis or storm Category: Medical Plan: 48-year-old female with a history of hyperthyroidism diagnosed sometime in 2011, who has been inconsistent with the her follow up and adherence to methimazole therapy, who is coming today for follow up. Now with good adherence she is on methimazole 5 mg daily, blood work done in July 2024 showed undetectable TSI, TSH receptor antibodies. Ultrasound thyroid done in July 2024 does show bilateral subcentimeter nodules, none of these meet criteria for FNA or follow up. TSH from July 2024 within normal range and normal free T4 and total T3. Thyroid uptake and scan done 09/15/2024 did not identify any hot total coal regions, showed diffuse homogeneous uptake with the increased uptake of 49.76% at 24:00 hours. This is more consistent with seronegative Graves disease. 02/02/2025: TSH 1.12, free T4 0.84, total T3 106 Currently on methimazole 5 mg daily, overall she is doing well. At this point she has been on methimazole at least for the past 1 or 1-1/2 year. For now we will continue. Discussed with patient that about 30% of the patients have remission after 12-18 months of treatment with methimazole. More recent data has shown longer periods of treatment resulting in better remission rates as well. At this time we will plan to continue treatment with methimazole and continue adjusting the dose as needed. In the long run if she does not have remission, we also briefly discussed definitive therapy options of radioactive iodine ablation and total thyroidectomy and the need for requiring long-term levothyroxine therapy after those procedures. Plan: -Continue taking methimazole 5 mg daily in the morning. - ordered TSH and free T4 plus total T3 to be repeated prior to follow up in 6 months -follow up in 6 months Plan I spent 30 minutes in reviewing the record, seeing the patient and documenting in the medical record. Orders: Orders Albumin Level 5 Months E05.90 - Thyrotoxicosis, unspecified without thyrotoxic crisis or storm, E21.3 - Hyperparathyroidism, unspecified Calcium 5 Months E05.90 - Thyrotoxicosis, unspecified without thyrotoxic crisis or storm, E21.3 - Hyperparathyroidism, unspecified Thyroid Stimulating Hormone 5 Months E05.90 - Thyrotoxicosis, unspecified without thyrotoxic crisis or storm, E21.3 - Hyperparathyroidism, unspecified Parathyroid Hormone Intact 5 Months E05.90 - Thyrotoxicosis, unspecified without thyrotoxic crisis or storm, E21.3 - Hyperparathyroidism, unspecified Vitamin D 25-OH Total 5 Months E05.90 - Thyrotoxicosis, unspecified without thyrotoxic crisis or storm, E21.3 - Hyperparathyroidism, unspecified Creatinine 5 Months E05. - Thyrotoxicosis, unspecified without thyrotoxic crisis or storm, E21.3 - Hyperparathyroidism, unspecified Triiodothyronine T3 Total 5 Months E05. - Thyrotoxicosis, unspecified without thyrotoxic crisis or storm, E21.3 - Hyperparathyroidism, unspecified Free T4 (Free Thyroxine) 5 Months E05. - Thyrotoxicosis, unspecified without thyrotoxic crisis or storm, E21.3 - Hyperparathyroidism, unspecified Calcium, Ionized 5 Months E05. - Thyrotoxicosis, unspecified without thyrotoxic crisis or storm, E21.3 - Hyperparathyroidism, unspecified Phosphorus 5 Months E05. - Thyrotoxicosis, unspecified without thyrotoxic crisis or storm, E21.3 - Hyperparathyroidism, unspecified Medications: Refilled methimazole 5 mg PO DAILY 30 tabs 9RF Patient Instructions: Continue methimazole 5 mg daily Do blood work at [facility], [address] [place] [address] 2 weeks prior to your next appointment, please make sure they fax results to me Coding Level of Care Code Est Pt Level 4 (28361) Diagnoses Hyperparathyroidism E21.3 Hyperthyroidism E05 Time Spent (min) 30
[2025-02-23 10:43] VITALS: BP 132/100; PULSE 92; O2SAT 95; BMI 31.0
== END 2025-02-23 11:09 | disposition home or self-care (01) ==
LOC: HO.ENCR 10:41
PROVIDERS: PCP Family Medicine; Visit Provider Student in an Organized Health Care Education/Training Program
DX: E21.3 Hyperparathyroidism, unspecified (principal); E05.90 Thyrotoxicosis, unspecified without thyrotoxic crisis or storm
CPT/HCPCS: 99214

== ENCOUNTER → 2025-02-23 10:41 | Outpatient (BNVA) | payer OTHER, SELFPAY | PROVIDERS: PCP Family Medicine; Visit Provider Student in an Organized Health Care Education/Training Program | DX: E21.3 Hyperparathyroidism, unspecified (principal); E05.90 Thyrotoxicosis, unspecified without thyrotoxic crisis or storm | CPT/HCPCS: 99212 ==